=== PATIENT | male | born 1950 | race Caucasian/White ===

== ENCOUNTER 2017-04-13 11:56 | Outpatient (RCR) | payer SELFPAY | END 2017-05-09 23:59 | LOC: NS 11:56 | PROVIDERS: Family Provider Family Medicine; PCP Family Medicine; Visit Provider Family Medicine | DX: Z68.41 Body mass index [BMI] 40.0-44.9, adult (principal); Z71.3 Dietary counseling and surveillance | CPT/HCPCS: 97802 ==

== ENCOUNTER → 2017-05-19 11:03 | Outpatient (CLI) | payer MEDICARE, OTHER, SELFPAY ==
[2017-05-19 12:27] LABS: Absolute Lymphocyte Count 1.76 X10^3/ul (0.83-4.51); Absolute Neutrophil Count 5.2 X10^3/uL (2.0-7.7); Basophil# 0.04 X10^3/uL; Basophil% 0.5 % (0-1); Eosinophil# 0.17 X10^3/uL; Eosinophils% 2.2 % (0-5); Hematocrit 41.7 % (40-54); Hemoglobin 14.3 g/dl (13.0-16.5); Lymphocyte # 1.76 X10^3/ul (4.0); Lymphocyte % 22.5 % (19-41); Mean Corp Hgb Conc 34.3 g/gl (32-36); Mean Corpuscular Hgb 30.6 pg (27.0-32.0); Mean Corpuscular Volume 89.3 fL (80-94); Mean Platelet Vol. 10.6 fl (6.2-12.0); Monocyte# 0.68 X10^3/uL; Monocyte% 8.7 % (0-10); Neutrophil # 5.15 X10^3/uL (2.7-7.7); POSITIVE COUNT NO; POSITIVE DIFFERENTIAL NO; POSITIVE MORPHOLOGY NO; Platelet Count 168 K/mm3 (150-450); RBC Distribution Width CV 12.7 % (11.6-14.6); RBC Distribution Width SD 40.9 fl (35.1-43.9); Red Blood Count 4.67 M/mm3 (4.6-6.2); White Blood Count 7.8 K/mm3 (4.4-11.0)
[2017-05-19 12:59] LABS: ALB/GLOB Ratio 0.9 RATIO (0.9-2.4); AST(SGOT) 32 U/L (15-37); Alanine Aminotransfer ALT/SGPT 39 U/L (16-61); Albumin, Serum 3.6 g/dL (3.2-5.0); Alkaline Phosphatase 77 U/L (45-117); Anion Gap 6 (5-15); BUN 14 mg/dL (7-18); Calcium,Total 8.6 mg/dL (8.5-10.1); Chloride 107 mmol/L (98-107); EST Glomerular Filtration Rate 80 mL/min (>60); Est Glom Filt Rate - Afr Amer 96 mL/min (>60); Globulin 4.2 g/dL (2.2-4.2); Glucose 103 mg/dL (74-106); Potassium 4.2 mmol/L (3.5-5.1); Protein, Total 7.8 g/dL (6.4-8.2); Sodium Level 140 mmol/L (136-145)
== END ==
PROVIDERS: Family Provider Family Medicine; PCP Family Medicine; Visit Provider Internal Medicine Rheumatology
DX: M06.4 Inflammatory polyarthropathy (principal); M17.11 Unilateral primary osteoarthritis, right knee; M48.10 Ankylosing hyperostosis [Forestier], site unspecified; K76.0 Fatty (change of) liver, not elsewhere classified
CPT/HCPCS: 36415; 80053; 85025

== ENCOUNTER → 2017-08-06 15:22 | Outpatient (CLI) | payer MEDICARE, OTHER, SELFPAY ==
[2017-08-06 18:24] LABS: Absolute Lymphocyte Count 2.06 X10^3/ul (0.83-4.51); Absolute Neutrophil Count 7.2 X10^3/uL (2.0-7.7); Basophil# 0.02 X10^3/uL; Basophil% 0.2 % (0-1); Eosinophil# 0.13 X10^3/uL; Eosinophils% 1.2 % (0-5); Hematocrit 40.7 % (40-54); Hemoglobin 13.4 g/dl (13.0-16.5); Lymphocyte # 2.06 X10^3/ul (4.0); Lymphocyte % 19.6 % (19-41); Mean Corp Hgb Conc 32.9 g/gl (32-36); Mean Corpuscular Hgb 29.7 pg (27.0-32.0); Mean Corpuscular Volume 90.2 fL (80-94); Mean Platelet Vol. 10.4 fl (6.2-12.0); Monocyte# 1.13 X10^3/uL; Monocyte% 10.8 % (0-10); Neutrophil # 7.15 X10^3/uL (2.7-7.7); Platelet Count 159 K/mm3 (150-450); RBC Distribution Width SD 42.5 fl (35.1-43.9); Red Blood Count 4.51 M/mm3 (4.6-6.2); White Blood Count 10.5 K/mm3 (4.4-11.0)
[2017-08-06 18:33] LABS: POSITIVE COUNT NO; POSITIVE DIFFERENTIAL NO; POSITIVE MORPHOLOGY NO
[2017-08-06 19:03] LABS: Microalbumin:Creatinine Ratio 47.2 mg/g CRE (<30 mg/g CRE)
[2017-08-06 19:06] LABS: ALB/GLOB Ratio 0.8 RATIO (0.9-2.4); AST(SGOT) 30 U/L (15-37); Alanine Aminotransfer ALT/SGPT 30 U/L (16-61); Albumin, Serum 3.6 g/dL (3.2-5.0); Alkaline Phosphatase 83 U/L (45-117); Anion Gap 8 (5-15); BUN 13 mg/dL (7-18); BUN/Creat Ratio 14.8 RATIO (10-20); CPK Total, Creatine Kinase 379 U/L (39-308); Calcium,Total 8.7 mg/dL (8.5-10.1); Chloride 103 mmol/L (98-107); Cholesterol 114 mg/dL (200); Creatinine, Serum 0.88 mg/dL (0.70-1.30); EST Glomerular Filtration Rate 92 mL/min (>60); Est Glom Filt Rate - Afr Amer 112 mL/min (>60); Globulin 4.5 g/dL (2.2-4.2); Glucose 94 mg/dL (74-106); Potassium 3.7 mmol/L (3.5-5.1); Protein, Total 8.1 g/dL (6.4-8.2); Sodium Level 137 mmol/L (136-145); Thyroid Stim Hormone (TSH) 2.98 uIU/mL (0.358-3.74)
[2017-08-08 16:10] LABS: Creatine Kinase BB 0 % (0); Creatine Kinase MB 1 % (0-3); Creatine Kinase MM 97 % (97-100); Creatine Kinase,Total,Serum 387 U/L (24-204); LDL, Direct 120295 68 mg/dL (0-99); Macro II 0 % (Not Observed)
[2017-08-09 12:39] LABS: ANTINUCLEAR ANTIBODIES DIRECT Negative (Negative); Aldolase 5.7 U/L (3.3-10.3); Macro I 3 % (Not Observed)
== END ==
PROVIDERS: Family Provider Family Medicine; PCP Family Medicine; Visit Provider Family Medicine
DX: R74.8 Abnormal levels of other serum enzymes (principal); M06.4 Inflammatory polyarthropathy; I70.8 Atherosclerosis of other arteries
CPT/HCPCS: 36415; 80053; 82043; 82085; 82465; 82550; 82552; 82570; 83721; 84443; 85025; 86038; 86140

== ENCOUNTER → 2017-09-18 11:00 | Outpatient (CLI) | payer MEDICARE, OTHER, SELFPAY ==
[2017-09-18 12:11] LABS: Absolute Lymphocyte Count 1.75 X10^3/ul (0.83-4.51); Absolute Neutrophil Count 3.5 X10^3/uL (2.0-7.7); Basophil# 0.02 X10^3/uL; Basophil% 0.3 % (0-1); Eosinophils% 1.7 % (0-5); Hematocrit 41.7 % (40-54); Lymphocyte # 1.75 X10^3/ul (4.0); Lymphocyte % 30.5 % (19-41); Mean Corp Hgb Conc 33.6 g/gl (32-36); Mean Corpuscular Hgb 30.9 pg (27.0-32.0); Mean Corpuscular Volume 92.1 fL (80-94); Mean Platelet Vol. 10.2 fl (6.2-12.0); Monocyte# 0.34 X10^3/uL; Monocyte% 5.9 % (0-10); Neutrophil # 3.51 X10^3/uL (2.7-7.7); Neutrophil % 61.4 % (47-70); Platelet Count 156 K/mm3 (150-450); RBC Distribution Width CV 13.6 % (11.6-14.6); RBC Distribution Width SD 44.9 fl (35.1-43.9); Red Blood Count 4.53 M/mm3 (4.6-6.2); White Blood Count 5.7 K/mm3 (4.4-11.0)
[2017-09-18 12:16] LABS: POSITIVE COUNT NO; POSITIVE DIFFERENTIAL NO; POSITIVE MORPHOLOGY NO
[2017-09-18 12:41] LABS: ALB/GLOB Ratio 0.9 RATIO (0.9-2.4); AST(SGOT) 34 U/L (15-37); Alanine Aminotransfer ALT/SGPT 42 U/L (16-61); Albumin, Serum 3.7 g/dL (3.2-5.0); Alkaline Phosphatase 76 U/L (45-117); Anion Gap 9 (5-15); BUN 18 mg/dL (7-18); Calcium,Total 8.7 mg/dL (8.5-10.1); Chloride 103 mmol/L (98-107); EST Glomerular Filtration Rate 80 mL/min (>60); Est Glom Filt Rate - Afr Amer 96 mL/min (>60); Globulin 4.2 g/dL (2.2-4.2); Glucose 139 mg/dL (74-106); Potassium 4.2 mmol/L (3.5-5.1); Protein, Total 7.9 g/dL (6.4-8.2); Sodium Level 141 mmol/L (136-145)
== END ==
PROVIDERS: Family Provider Family Medicine; PCP Family Medicine; Visit Provider Internal Medicine Rheumatology
DX: M06.4 Inflammatory polyarthropathy (principal); M17.11 Unilateral primary osteoarthritis, right knee; M48.10 Ankylosing hyperostosis [Forestier], site unspecified
CPT/HCPCS: 36415; 80053; 85025

== ENCOUNTER → 2017-11-29 15:19 | Outpatient (CLI) | payer MEDICARE, OTHER, SELFPAY ==
[2017-11-29 18:28] LABS: ALB/GLOB Ratio 0.9 RATIO (0.9-2.4); AST(SGOT) 36 U/L (15-37); Alanine Aminotransfer ALT/SGPT 42 U/L (16-61); Albumin, Serum 3.7 g/dL (3.2-5.0); Alkaline Phosphatase 72 U/L (45-117); Anion Gap 13 (5-15); BUN 19 mg/dL (7-18); BUN/Creat Ratio 20.1 RATIO (10-20); CPK Total, Creatine Kinase 350 U/L (39-308); Calcium,Total 8.9 mg/dL (8.5-10.1); Chloride 102 mmol/L (98-107); Creatinine, Serum 0.94 mg/dL (0.70-1.30); EST Glomerular Filtration Rate 85 mL/min (>60); Est Glom Filt Rate - Afr Amer 103 mL/min (>60); Globulin 4.1 g/dL (2.2-4.2); Glucose 104 mg/dL (74-106); Potassium 3.9 mmol/L (3.5-5.1); Protein, Total 7.8 g/dL (6.4-8.2); Sodium Level 140 mmol/L (136-145)
== END ==
PROVIDERS: Family Provider Family Medicine; PCP Family Medicine; Visit Provider Family Medicine
DX: R52 Pain, unspecified (principal)
CPT/HCPCS: 36415; 80053; 82550

== ENCOUNTER → 2017-12-27 11:24 | Outpatient (CLI) | payer MEDICARE, OTHER, SELFPAY ==
[2017-12-27 14:35] LABS: ALB/GLOB Ratio 0.9 RATIO (0.9-2.4); AST(SGOT) 29 U/L (15-37); Alanine Aminotransfer ALT/SGPT 39 U/L (16-61); Albumin, Serum 3.5 g/dL (3.2-5.0); Alkaline Phosphatase 74 U/L (45-117); Anion Gap 7 (5-15); BUN 13 mg/dL (7-18); BUN/Creat Ratio 14.8 RATIO (10-20); Chloride 106 mmol/L (98-107); Cholesterol 96 mg/dL (200); Creatinine, Serum 0.88 mg/dL (0.70-1.30); EST Glomerular Filtration Rate 93 mL/min (>60); Est Glom Filt Rate - Afr Amer 112 mL/min (>60); Globulin 3.9 g/dL (2.2-4.2); Glucose 104 mg/dL (74-106); High Density Lipoprotein 43 mg/dL; Potassium 3.9 mmol/L (3.5-5.1); Protein, Total 7.4 g/dL (6.4-8.2); Sodium Level 143 mmol/L (136-145); Triglycerides 69 mg/dL; Very Low Density Lipoprotein 14 mg/dL (5-40)
[2017-12-27 14:38] LABS: Hematocrit 41.3 % (40-54); Hemoglobin 13.9 g/dl (13.0-16.5); Mean Corp Hgb Conc 33.7 g/gl (32-36); Mean Corpuscular Hgb 31.4 pg (27.0-32.0); Mean Corpuscular Volume 93.2 fL (80-94); Platelet Count 161 K/mm3 (150-450); RBC Distribution Width CV 12.6 % (11.6-14.6); RBC Distribution Width SD 41.9 fl (35.1-43.9); Red Blood Count 4.43 M/mm3 (4.6-6.2); Vitamin D,25 Hydroxy 30.6 ng/mL (29.95-100.01); White Blood Count 6.9 K/mm3 (4.4-11.0)
[2017-12-27 14:39] LABS: Absolute Lymphocyte Count 1.66 X10^3/ul (0.83-4.51); Absolute Neutrophil Count 4.3 X10^3/uL (2.0-7.7); Basophil# 0.04 X10^3/uL; Basophil% 0.6 % (0-1); Eosinophil# 0.23 X10^3/uL; Eosinophils% 3.3 % (0-5); Lymphocyte # 1.66 X10^3/ul (4.0); Lymphocyte % 24.1 % (19-41); Mean Platelet Vol. 10.3 fl (6.2-12.0); Monocyte# 0.64 X10^3/uL; Monocyte% 9.3 % (0-10); Neutrophil % 62.4 % (47-70); POSITIVE COUNT NO; POSITIVE DIFFERENTIAL NO; POSITIVE MORPHOLOGY NO
[2017-12-28 16:09] LABS: Creatine Kinase MB 0 % (0-3); Creatine Kinase MM 100 % (97-100); Creatine Kinase,Total,Serum 221 U/L (24-204); Macro I 0 % (Not Observed); Macro II 0 % (Not Observed)
[2017-12-31 11:02] LABS: Creatine Kinase BB 0 % (0)
== END ==
PROVIDERS: Family Provider Family Medicine; PCP Family Medicine; Visit Provider Family Medicine
DX: I70.8 Atherosclerosis of other arteries (principal); M48.10 Ankylosing hyperostosis [Forestier], site unspecified; M06.4 Inflammatory polyarthropathy; M17.11 Unilateral primary osteoarthritis, right knee
CPT/HCPCS: 36415; 80053; 80061; 82306; 82550; 82552; 85025

== ENCOUNTER → 2018-02-14 11:34 | Outpatient (CLI) | payer MEDICARE, OTHER, SELFPAY ==
[2018-02-14 14:36] LABS: Absolute Lymphocyte Count 1.76 X10^3/ul (0.83-4.51); Absolute Neutrophil Count 3.8 X10^3/uL (2.0-7.7); Basophil# 0.03 X10^3/uL; Basophil% 0.5 % (0-1); Eosinophil# 0.09 X10^3/uL; Eosinophils% 1.4 % (0-5); Hematocrit 42.2 % (40-54); Hemoglobin 13.9 g/dl (13.0-16.5); Lymphocyte # 1.76 X10^3/ul (4.0); Lymphocyte % 28.1 % (19-41); Mean Corp Hgb Conc 32.9 g/gl (32-36); Mean Corpuscular Hgb 31.2 pg (27.0-32.0); Mean Corpuscular Volume 94.8 fL (80-94); Mean Platelet Vol. 10.1 fl (6.2-12.0); Monocyte# 0.55 X10^3/uL; Monocyte% 8.8 % (0-10); Neutrophil # 3.81 X10^3/uL (2.7-7.7); Neutrophil % 60.9 % (47-70); POSITIVE COUNT NO; POSITIVE DIFFERENTIAL NO; POSITIVE MORPHOLOGY NO; Platelet Count 161 K/mm3 (150-450); RBC Distribution Width CV 13.3 % (11.6-14.6); RBC Distribution Width SD 45.5 fl (35.1-43.9); Red Blood Count 4.45 M/mm3 (4.6-6.2); White Blood Count 6.3 K/mm3 (4.4-11.0)
[2018-02-14 14:54] LABS: ALB/GLOB Ratio 0.9 RATIO (0.9-2.4); AST(SGOT) 26 U/L (15-37); Alanine Aminotransfer ALT/SGPT 39 U/L (16-61); Albumin, Serum 3.6 g/dL (3.2-5.0); Alkaline Phosphatase 76 U/L (45-117); Anion Gap 9 (5-15); BUN 16 mg/dL (7-18); BUN/Creat Ratio 17.7 RATIO (10-20); Calcium,Total 8.7 mg/dL (8.5-10.1); Chloride 104 mmol/L (98-107); EST Glomerular Filtration Rate 89 mL/min (>60); Est Glom Filt Rate - Afr Amer 108 mL/min (>60); Glucose 119 mg/dL (74-106); Potassium 3.7 mmol/L (3.5-5.1); Protein, Total 7.6 g/dL (6.4-8.2); Sodium Level 142 mmol/L (136-145)
== END ==
PROVIDERS: Family Provider Family Medicine; PCP Family Medicine; Visit Provider Internal Medicine Rheumatology
DX: M06.4 Inflammatory polyarthropathy (principal); M17.11 Unilateral primary osteoarthritis, right knee; M48.10 Ankylosing hyperostosis [Forestier], site unspecified; K76.0 Fatty (change of) liver, not elsewhere classified; E78.5 Hyperlipidemia, unspecified; I10 Essential (primary) hypertension; K58.9 Irritable bowel syndrome, unspecified; F41.9 Anxiety disorder, unspecified; I73.9 Peripheral vascular disease, unspecified
CPT/HCPCS: 36415; 80053; 85025

== ENCOUNTER → 2018-05-14 11:15 | Outpatient (CLI) | payer MEDICARE, SELFPAY ==
[2017-07-27 11:20] VITALS: BMI 41.2
[2018-05-14 13:58] LABS: Absolute Lymphocyte Count 1.75 X10^3/ul (0.83-4.51); Absolute Neutrophil Count 4.7 X10^3/uL (2.0-7.7); Basophil# 0.03 X10^3/uL; Basophil% 0.4 % (0-1); Eosinophil# 0.09 X10^3/uL; Eosinophils% 1.3 % (0-5); Hematocrit 44.2 % (40-54); Hemoglobin 14.5 g/dl (13.0-16.5); Lymphocyte # 1.75 X10^3/ul (4.0); Lymphocyte % 24.4 % (19-41); Mean Corp Hgb Conc 32.8 g/gl (32-36); Mean Corpuscular Hgb 30.6 pg (27.0-32.0); Mean Corpuscular Volume 93.2 fL (80-94); Mean Platelet Vol. 10.8 fl (6.2-12.0); Monocyte# 0.62 X10^3/uL; Monocyte% 8.6 % (0-10); Neutrophil # 4.67 X10^3/uL (2.7-7.7); Platelet Count 165 K/mm3 (150-450); RBC Distribution Width SD 44.3 fl (35.1-43.9); Red Blood Count 4.74 M/mm3 (4.6-6.2); White Blood Count 7.2 K/mm3 (4.4-11.0)
[2018-05-14 14:01] LABS: POSITIVE COUNT NO; POSITIVE DIFFERENTIAL NO; POSITIVE MORPHOLOGY NO
[2018-05-14 15:08] LABS: ALB/GLOB Ratio 1.1 RATIO (0.9-2.4); AST(SGOT) 29 U/L (15-37); Alanine Aminotransfer ALT/SGPT 37 U/L (16-61); Albumin, Serum 3.9 g/dL (3.2-5.0); Alkaline Phosphatase 81 U/L (45-117); Anion Gap 10 (5-15); BUN 12 mg/dL (7-18); BUN/Creat Ratio 13.5 RATIO (10-20); Calcium,Total 8.8 mg/dL (8.5-10.1); Chloride 105 mmol/L (98-107); Creatinine, Serum 0.89 mg/dL (0.70-1.30); EST Glomerular Filtration Rate 91 mL/min (>60); Est Glom Filt Rate - Afr Amer 110 mL/min (>60); Globulin 3.4 g/dL (2.2-4.2); Glucose 108 mg/dL (74-106); Potassium 3.8 mmol/L (3.5-5.1); Protein, Total 7.3 g/dL (6.4-8.2); Sodium Level 144 mmol/L (136-145)
== END ==
PROVIDERS: Family Provider Family Medicine; PCP Family Medicine; Visit Provider Internal Medicine Rheumatology
DX: M06.4 Inflammatory polyarthropathy (principal); M17.11 Unilateral primary osteoarthritis, right knee; M48.10 Ankylosing hyperostosis [Forestier], site unspecified; K76.0 Fatty (change of) liver, not elsewhere classified; E78.5 Hyperlipidemia, unspecified; I10 Essential (primary) hypertension; K58.9 Irritable bowel syndrome, unspecified; F41.9 Anxiety disorder, unspecified; I73.9 Peripheral vascular disease, unspecified
CPT/HCPCS: 36415; 80053; 85025

== ENCOUNTER → 2018-06-14 11:47 | Outpatient (CLI) | payer MEDICARE, OTHER, SELFPAY ==
[2018-06-14 11:10] VITALS: BMI 41.2
[2018-06-17 12:13] LABS: H. PYLORI STOOL AG Negative (Negative)
== END ==
PROVIDERS: Family Provider Family Medicine; PCP Family Medicine
DX: K21.9 Gastro-esophageal reflux disease without esophagitis (principal)

== ENCOUNTER → 2018-07-01 13:02 | Outpatient (CLI) | payer MEDICARE, OTHER, SELFPAY ==
[2018-06-14 11:10] VITALS: BMI 41.2
--- NOTE | 2018-07-01 13:04 | ECHOD_ITS ---
Reason For Study: HTN Procedure This was a 2D Doppler, Color Flow transthoracic echocardiogram. Exam performed in department. Left Ventricle Normal LV size. Mild concentric left ventricular hypertrophy. Left ventricular systolic function is normal. The estimated ejection fraction is 60 %. Stage 1 diastolic dysfunction. No regional wall motion abnormalities noted. Right Ventricle Normal RV size. Normal systolic function. Atria Normal left atrium. Normal right atrium. Mitral Valve Normal mitral valve. Tricuspid Valve Normal tricuspid valve. Aortic Valve Normal aortic valve. Pulmonic Valve Normal pulmonic valve. Great Vessels Normal aortic root. The pulmonary artery is normal size. Normal inferior vena cava. Pericardium/Pleural No pericardial effusion. MMode/2D Measurements & Calculations LVIDd: 5.2 cm IVSd: 1.4 cm LVOT diam: 2.3 cm LVIDs: 3.5 cm LVPWd: 1.2 cm LVOT area: 4.2 cm2 RVDd: 3.9 cm FS: 32.9 % Ao root diam: 3.3 cm LAV(MOD-bp): 57.5 ml LVAd ap4: 36.9 cm2 LAV(MOD-bp) Indexed: 22.3 ml/m2 EDV(MOD-sp4): 121.1 ml LAV(MOD-sp2): 51.1 ml EDV(sp4-el): 125.5 ml LAV(MOD-sp4): 60.6 ml LVAs ap4: 17.9 cm2 ESV(MOD-sp4): 38.9 ml ESV(sp4-el): 38.1 ml EF(MOD-sp4): 67.9 % EF(sp4-el): 69.6 % SV(MOD-sp4): 82.2 ml SV(sp4-el): 87.4 ml LA A4 area: 20.9 cm2 LA dimension(2D): 4.5 cm RA A4 area: 19.2 cm2 Doppler Measurements & Calculations MV E max charles: 62.0 cm/sec Lat Peak E' Charles: 9.2 cm/sec Med Peak E' Charles: 5.6 cm/sec MV A max charles: 98.6 cm/sec E/E' lat: 6.7 E/E' med: 11.1 MV E/A: 0.63 Ao V2 max: 195.7 cm/sec LV V1 max: 123.4 cm/sec SV(LVOT): 102.8 ml Ao max P.4 mmHg LV V1 max P.2 mmHg Ao V2 mean: 127.8 cm/sec LV V1 mean P.3 mmHg Ao mean P.4 mmHg LV V1 mean: 85.6 cm/sec Ao V2 VTI: 39.5 cm LV V1 VTI: 24.6 cm MANISH(I,D): 2.6 cm2 MANISH(V,D): 2.6 cm2 PA V2 max: 126.8 cm/sec Interpretation Summary Normal LV size. Mild concentric left ventricular hypertrophy. Left ventricular systolic function is normal. The estimated ejection fraction is 60 %. Stage 1 diastolic dysfunction. Ordering Physician: Andrea Ly Referring Physician: Kevyn Sal Performed By: Soni Lawson RDCS, RVT
== END ==
PROVIDERS: Family Provider Family Medicine; PCP Family Medicine; Referring Provider Internal Medicine Cardiovascular Disease; Visit Provider Internal Medicine Cardiovascular Disease
DX: I49.3 Ventricular premature depolarization (principal)
CPT/HCPCS: 93306

== ENCOUNTER 2018-08-02 13:00 | Outpatient (RCR) | payer MEDICARE, OTHER, SELFPAY ==
[2018-06-14 11:10] VITALS: BMI 41.2
== END 2018-08-02 23:59 | disposition home or self-care (01) ==
LOC: NS 13:00
PROVIDERS: Family Provider Family Medicine; PCP Family Medicine; Visit Provider Orthopaedic Surgery
DX: M12.561 Traumatic arthropathy, right knee (principal); I10 Essential (primary) hypertension; Z71.3 Dietary counseling and surveillance
CPT/HCPCS: 97802; 97803

== ENCOUNTER 2018-08-19 05:33 | Observation (INO) | payer MEDICARE, OTHER, SELFPAY ==
[2018-06-14 11:10] VITALS: BMI 41.2
[2018-08-09 13:30] VITALS: BP 148/61; PULSE 62; RESP 18; TEMP 36.6; O2SAT 96; BMI 40.0
[2018-08-09 14:33] LABS: Hemoglobin 14.2 g/dl (13.0-16.5); Mean Corp Hgb Conc 34.6 g/gl (32-36); Mean Corpuscular Hgb 31.6 pg (27.0-32.0); Mean Corpuscular Volume 91.3 fL (80-94); Mean Platelet Vol. 9.7 fl (6.2-12.0); Platelet Count 156 K/mm3 (150-450); RBC Distribution Width CV 13.6 % (11.6-14.6); RBC Distribution Width SD 44.6 fl (35.1-43.9); Red Blood Count 4.49 M/mm3 (4.6-6.2); White Blood Count 7.1 K/mm3 (4.4-11.0)
[2018-08-09 14:34] LABS: Scan Indicated on CBC? Y/N NO
--- NOTE | 2018-08-09 14:46 | SDCEKG_ITS ---
Test Reason : Blood Pressure : / mmHG Vent. Rate : 050 BPM Atrial Rate : 050 BPM P-R Int : 158 ms QRS Dur : 090 ms QT Int : 458 ms P-R-T Axes : 020 -20 -02 degrees QTc Int : 417 ms Sinus bradycardia with marked sinus arrhythmia Inferior infarct , age undetermined Abnormal ECG Confirmed by ROLAND ANDREWS, LORIE ([id number]), medical transcription editor ADRIANNA PIERRE ([id number]) on 08/13/2018 1:35:15 PM Referred By: Paul Jj Confirmed By:LORIE WATKINS MD
[2018-08-09 15:00] LABS: Anion Gap 6 (5-15); BUN 13 mg/dL (7-18); BUN/Creat Ratio 14.5 RATIO (10-20); Calcium,Total 8.9 mg/dL (8.5-10.1); Chloride 106 mmol/L (98-107); EST Glomerular Filtration Rate 90 mL/min (>60); Est Glom Filt Rate - Afr Amer 109 mL/min (>60); Estimated Creatinine Clearance 93.87 ml/min; Glucose 87 mg/dL (74-106); Potassium 4.4 mmol/L (3.5-5.1); Sodium Level 141 mmol/L (136-145)
[2018-08-19] VITALS (15 sets, daily range): BP systolic 102–145; BP diastolic 49–72; PULSE 54–89; RESP 14–18; TEMP 36.2–37.3; O2SAT 91–98; BMI 40.0
[2018-08-19] MEDS: Acetaminophen 500 MG Tablet 1000 MG PO ×3 (06:32→21:20)
[2018-08-19] MEDS: oxyCODONE HCl Cr 10 MG Tablet PO (06:32)
[2018-08-19] MEDS: Celecoxib 200 MG Capsule 400 MG PO (06:33)
--- NOTE | 2018-08-19 07:15 | KNEE_PTH ---
PATIENT: ERICA CARLIN LOC: [facility]3 U#:[id number] AGE/SX: 67/M [place] [facility] [place] RE08/19/[address]: Dr. Paul Jj DO : 1950 BED: 1 DIS: 08/20/2018 SPEC #: [id number] RECD: 08/19/18 11:28 STATUS: AYAD TERESITA #: [id number] DEE: 08/19/18 07:[address]: Paul Jj DEPT: SURGICAL PATHOLOGY RECD BY: Ping Orr ENTERED: 08/19/18 11:50 SP TYPE: TOTAL KNEE OTHR DR: Dr. Kevyn Sal MD Tissues: Knee, NOS Procedures: Decalcification bone/plaque Surgery Specimen Level IV HEADER OPERATION: Total knee replacement PRE-OP DIAGNOSIS: Osteoarthritis, left knee TISSUE SUBMITTED: Left knee bone and tissue MICROSCOPIC DIAGNOSIS Bone and tissue of left knee, total knee resection: Severe degenerative joint disease. AM:tab 08/22/18 MICROSCOPIC DESCRIPTION Slides are reviewed. GROSS DESCRIPTION Received is one container designated bone and soft tissue left knee. The specimen consists of multiple fragments of tran-yellow bone measuring in aggregate 12 x 10 x 3.5 cm. No soft tissue is identified. A number of bony fragments contain articular surfaces consistent with tibial plateau and femoral condyle and displaying prominent osteophyte formation, eburnation, and bone erosion. Shoe Singer sections are submitted in one cassette after decalcification. / SJ:tab 08/19/18 TC:5 CPT: 13044, 06464
--- NOTE | 2018-08-19 08:52 | PCM.OPRPT ---
Report of Operation Date of Procedure: 08/19/18 Pre-Operative Diagnosis: OA left knee Post-Operative Diagnosis: same Surgery/Procedure Performed:: Left TKR Description of Surgical Findings:: Primary Surgeon/Physician: Paul Jj bin operator: Alejo Bird PA-C bin operator: Pre-Operative Diagnosis: Osteoarthritis left knee Post-Operative Diagnosis: same Surgery/Procedure Performed: Left TKR Estimated Blood Loss: 25cc Specimen's Removed: bone Type of Anesthesia: spinal ASA Class: 3 Implants: [Wayne Triathlon size 7 press fit CR femur, Press fit 7 tibia, 9 mm CS poly, 38 mm press fit patella ] Indications: Patient has severe end-stage osteoarthritis diagnosed via x-rays in the knee. They have failed all forms of conservative measures including activity modification, injections, anti-inflammatories, use of assistive device. The patient has pain that affects on a daily basis and prevents him from doing things that they enjoyed. They have elected to undergo the above procedure. The risks of the procedure were discussed at length and their questions were answered. Procedure Description: The patient was greeted in the preoperative area. The [left ] knee was then marked with a surgical marker. Patient was then taken to or Suite 2. They were administered a dose of antibiotics as well as tranexamic acid. Once adequate anesthesia was obtained and airway was secured to placed in supine position on the operating room table. A well-padded tourniquet was placed on the affected extremity. Leg was then prepped and draped in the usual sterile fashion from the knee down. Ioban was used on the skin. Surgical timeout was then performed and confirmed with all present. Six-inch Esmarch was used to examine the limb and tourniquet was then inflated to 250 mmHg. A longitudinal incision was then planned and carried out in the anterior aspect of the knee. The dissection was then carried the length of the incision the extensor mechanism was identified. Standard medial parapatellar arthrotomy was then performed revealing severe eburnation of bone and periarticular osteophytes. There is complete loss of cartilage especially in the medial compartment with varus alignment. Anterior fat pad was removed for visualization purposes and the anterior medial aspect of the tibia was skeletonized for exposure to the knee. The knee was then flexed the patella was inverted. Opening reamer was then used in the femur approximately 1 cm anterior to the attachment of the PCL. The intramedullary valgus wand was then placed in the femur set at 5? of valgus. The distal femoral cutting jig was then applied to the femur with anticipated resection of approximately 8 mm. This was then made with a oscillating saw. The sizing guide was then placed referencing off the posterior condyles and also reference off the epicondylar axis. This was measured and the appropriate size 4-in-1 cutting jig was then applied to the distal femur. Anterior posterior cuts were made followed by the anterior and posterior chamfer cuts. These bony pieces and fragments were removed and placed on the back table. Posterior retractor was then utilized and the tibia was subluxed anteriorly. Intramedullary tibial alignment jig was then applied to the tibia referencing off the medial one third of the tibial tubercle the anterior tibial spine the middle aspect of the tibiotalar joint. Also reference off patient's little traverse slope. The tibial cutting jig was then pinned with anticipated resection of 2 mm off of the deficient medial tibial condyle. This cut was made with the oscillating saw. Once this was complete a laminar warehouse guard was utilized in both medial lateral meniscus were removed and a posterior capsular osteophytes were also removed. Posterior capsule release was performed in the posterior capsule as well as the geniculate arteries are treated with the aqua Marlena. The tibia was incised and the appropriate sized tibial tray was then pinned. The femoral trial was then placed and the knee was trialed. Full flexion-extension were easily achieved. The knee seemed to balance quite nicely. Any remaining osteophytes were removed at this time. Once this was complete the patella was everted and the Sae patella reaming device was then utilized the patella was then placed in the appropriate jig and reamer was then used to remove approximately 9 mm of the undersurface of the patella. A soft tissue remaining was in the way was removed and patella trial was then placed listed maintain excellent tracking using the no thumbs technique. The tibial tray at this point was punched to accommodate the fins of the final implant. The trial components were removed and the knee was copiously irrigated. Did use a cocktail of injection for postoperative pain control. The final components were then impacted in the standard fashion and. Tourniquet was deflated and hemostasis was perfect with Bovie cautery as well as the aqua Manus. The knee is once again trialed with different size polyethylenes to ensure the full range of motion was achieved as well as excellent balancing ligamentously was achieved. At this point the knee was copiously irrigated. Final implant was then inserted locking mechanism was engaged and confirmed to be locked. The arthrotomy was then closed with #1 Vicryl aggravate type fashion interrupted. Subcutaneous tissue was closed with 0 Vicryl and surgical linda were placed in the skin. A occlusive silver impregnated dressing was then applied followed by well-padded sterile dressing secured with an Alexi wrap. The patient was taken to the PACU in stable condition. No complications known at this time. Postoperatively we will maintain standard total knee postoperative protocol. The use of the physician assistant manager pt was integral during this procedure. They assisted with positioning placement of the tourniquet retracting closure and placement of the dressing. The procedure would have been much more difficult without their expertise and assistance bin operator: Alejo Bird Type of Anesthesia:: Spinal Anesthesiologist: Paul Bunch Specimen's removed: bone Drains: none Estimated Blood Loss (mL): 25 cc - Admit VTE Documentation VTE Present on Admission: No VTE Mechan Device Prophylaxis: SCD's, Thigh High MIREILLE Hose VTE Pharm Prophylaxis ordered?: Yes
--- NOTE | 2018-08-19 09:00 | OP.PCM_ITS ---
Report of Operation Date of Procedure: 08/19/18 Pre-Operative Diagnosis: OA left knee Post-Operative Diagnosis: same Surgery/Procedure Performed:: Left TKR Description of Surgical Findings:: Primary Surgeon/Physician: Paul Jj publications distribution clerk: Alejo Bird PA-C publications distribution clerk: Pre-Operative Diagnosis: Osteoarthritis left knee Post-Operative Diagnosis: same Surgery/Procedure Performed: Left TKR Estimated Blood Loss: 25cc Specimen's Removed: bone Type of Anesthesia: spinal ASA Class: 3 Implants: [Omar Triathlon size 7 press fit CR femur, Press fit 7 tibia, 9 mm CS poly, 38 mm press fit patella ] Indications: Patient has severe end-stage osteoarthritis diagnosed via x-rays in the knee. They have failed all forms of conservative measures including activity modification, injections, anti-inflammatories, use of assistive device. The patient has pain that affects on a daily basis and prevents him from doing things that they enjoyed. They have elected to undergo the above procedure. The risks of the procedure were discussed at length and their questions were answered. Procedure Description: The patient was greeted in the preoperative area. The [left ] knee was then marked with a surgical marker. Patient was then taken to or Suite 2. They were administered a dose of antibiotics as well as tranexamic acid. Once adequate anesthesia was obtained and airway was secured to placed in supine position on the operating room table. A well-padded tourniquet was placed on the affected extremity. Leg was then prepped and draped in the usual sterile fashion from the knee down. Ioban was used on the skin. Surgical timeout was then performed and confirmed with all present. Six-inch Esmarch was used to examine the limb and tourniquet was then inflated to 250 mmHg. A longitudinal incision was then planned and carried out in the anterior aspect of the knee. The dissection was then carried the length of the incision the extensor mechanism was identified. Standard medial parapatellar arthrotomy was then performed revealing severe eburnation of bone and periarticular osteophytes. There is complete loss of cartilage especially in the medial compartment with varus alignment. Anterior fat pad was removed for visualization purposes and the anterior medial aspect of the tibia was s keletonized for exposure to the knee. The knee was then flexed the patella was inverted. Opening reamer was then used in the femur approximately 1 cm anterior to the attachment of the PCL. The intramedullary valgus wand was then placed in the femur set at 5? of valgus. The distal femoral cutting jig was then applied to the femur with anticipated resection of approximately 8 mm. This was then made with a oscillating saw. The sizing guide was then placed referencing off the posterior condyles and also reference off the epicondylar axis. This was measured and the appropriate size 4-in-1 cutting jig was then applied to the distal femur. Anterior posterior cuts were made followed by the anterior and posterior chamfer cuts. These bony pieces and fragments were removed and placed on the back table. Posterior retractor was then utilized and the tibia was subluxed anteriorly. Intramedullary tibial alignment jig was then applied to the tibia referencing off the medial one third of the tibial tubercle the anterior tibial spine the middle aspect of the tibiotalar joint. Also reference off patient's solomon slope. The tibial cutting jig was then pinned with anticipated resection of 2 mm off of the deficient medial tibial condyle. This cut was made with the oscillating saw. Once this was complete a laminar balcony worker was utilized in both medial lateral meniscus were removed and a posterior capsular osteophytes were also removed. Posterior capsule release was performed in the posterior capsule as well as the geniculate arteries are treated with the aqua Marlena. The tibia was incised and the appropriate sized tibial tray was then pinned. The femoral trial was then placed and the knee was trialed. Full flexion-extension were easily achieved. The knee seemed to balance quite nicely. Any remaining osteophytes were removed at this time. Once this was complete the patella was everted and the Sae patella reaming device was then utilized the patella was then placed in the appropriate jig and reamer was then used to remove approximately 9 mm of the undersurface of the patella. A soft tissue remaining was in the way was removed and patella trial was then placed listed maintain excellent tracking using the no thumbs technique. The tibial tray at this point was punched to accommodate the fins of the final implant. The trial components were removed and the knee was copiously irrigated. Did use a cocktail of injection for postoperative pain control. The final components were then impacted in the standard fashion and. Tourniquet was deflated and hemostasis was perfect with Bovie cautery as well as the aqua Manus. The knee is once again trialed with different size polyethylenes to ensure the full range of motion was achieved as well as excellent balancing ligamentously was achieved. At this point the knee was copiously irrigated. Final implant was then inserted locking mechanism was engaged and confirmed to be locked. The arthrotomy was then closed with #1 Vicryl aggravate type fashion interrupted. Subcutaneous tissue was closed with 0 Vicryl and surgical linda were placed in the skin. A occlusive silver impregnated dressing was then applied followed by well-padded sterile dressing secured with an Alexi wrap. The patient was taken to the PACU in stable condition. No complications known at this time. Postoperatively we will maintain standard total knee postoperative protocol. The use of the physician medical staff assistant was integral during this procedure. They assisted with positioning placement of the tourniquet retracting closure and p lacement of the dressing. The procedure would have been much more difficult without their expertise and assistance publications distribution clerk: Alejo Bird Type of Anesthesia:: Spinal Anesthesiologist: Paul Bunch Specimen's removed: bone Drains: none Estimated Blood Loss (mL): 25 cc - Admit VTE Documentation VTE Present on Admission: No VTE Mechan Device Prophylaxis: SCD's, Thigh High MIREILLE Hose VTE Pharm Prophylaxis ordered?: Yes
[2018-08-19] MEDS: Lactated Ringers 1,000 ML 125 ML IV ×3 (10:01→21:24)
[2018-08-19 10:19] LABS: Hemoglobin 12.7 g/dl (13.0-16.5); Mean Corp Hgb Conc 34.3 g/gl (32-36); Mean Corpuscular Hgb 31.4 pg (27.0-32.0); Mean Corpuscular Volume 91.6 fL (80-94); Mean Platelet Vol. 9.5 fl (6.2-12.0); Platelet Count 138 K/mm3 (150-450); RBC Distribution Width CV 13.7 % (11.6-14.6); RBC Distribution Width SD 45.2 fl (35.1-43.9); Red Blood Count 4.04 M/mm3 (4.6-6.2); Scan Indicated on CBC? Y/N NO; White Blood Count 8.4 K/mm3 (4.4-11.0)
[2018-08-19 10:32] LABS: Anion Gap 3 (5-15); BUN 12 mg/dL (7-18); BUN/Creat Ratio 13.1 RATIO (10-20); Calcium,Total 8.3 mg/dL (8.5-10.1); Chloride 108 mmol/L (98-107); Creatinine, Serum 0.92 mg/dL (0.70-1.30); EST Glomerular Filtration Rate 88 mL/min (>60); Est Glom Filt Rate - Afr Amer 106 mL/min (>60); Estimated Creatinine Clearance 91.83 ml/min; Glucose 117 mg/dL (74-106); Potassium 4.4 mmol/L (3.5-5.1); Sodium Level 139 mmol/L (136-145)
[2018-08-19] MEDS: oxyCODONE 5 MG Tablet PO ×3 (12:17→18:37)
[2018-08-19] MEDS: Mag Hydrox/Al Hydrox/Simeth 30 ML UDC PO (15:29)
[2018-08-19] MEDS: Ketorolac 15 MG/ML Vial IV (20:00)
[2018-08-19] MEDS: 0.9% NaCl Peripheral Flush Adult/Peds IV (20:01)
[2018-08-19] MEDS: Aspirin 325 MG Tablet PO (21:20)
[2018-08-19] MEDS: Senna/Docusate Sodium 1 Tablet 2 TABLET PO (21:20)
[2018-08-19] MEDS: traMADol 50 MG Tablet PO (21:24)
[2018-08-19] MEDS: traZODone 50 MG Tablet PO (21:24)
--- NOTE | 2018-08-19 21:30 | NURSING ---
pt called for assist when this rn into room was sitting on his bed iv, polar care & scd tubing tangled. Pt transferred himself with walker. Reminded pt to call for assist due to high fall risk with new knee. Equipment untangled and pt to bed. Bed exit on for safety.
[2018-08-20 00:19] VITALS: BP 145/59; PULSE 78; RESP 14; TEMP 36.9; O2SAT 93
[2018-08-20] MEDS: oxyCODONE 5 MG Tablet PO ×2 (00:24→09:41)
[2018-08-20] MEDS: Ketorolac 15 MG/ML Vial IV (04:16)
[2018-08-20] MEDS: 0.9% NaCl Peripheral Flush Adult/Peds IV ×2 (04:16→06:36)
[2018-08-20 05:51] VITALS: BP 140/56; PULSE 65; RESP 16; TEMP 36.8; O2SAT 97
[2018-08-20] MEDS: Acetaminophen 500 MG Tablet 1000 MG PO (05:58)
[2018-08-20 06:56] LABS: Hematocrit 38.4 % (40-54); Mean Corp Hgb Conc 33.9 g/gl (32-36); Mean Corpuscular Hgb 31.4 pg (27.0-32.0); Mean Corpuscular Volume 92.8 fL (80-94); Mean Platelet Vol. 9.5 fl (6.2-12.0); Platelet Count 138 K/mm3 (150-450); RBC Distribution Width CV 13.7 % (11.6-14.6); RBC Distribution Width SD 45.1 fl (35.1-43.9); Red Blood Count 4.14 M/mm3 (4.6-6.2); White Blood Count 9.9 K/mm3 (4.4-11.0)
[2018-08-20 06:57] LABS: Scan Indicated on CBC? Y/N NO
[2018-08-20 07:07] LABS: Anion Gap 4 (5-15); BUN 10 mg/dL (7-18); BUN/Creat Ratio 11.1 RATIO (10-20); Calcium,Total 8.5 mg/dL (8.5-10.1); Chloride 105 mmol/L (98-107); EST Glomerular Filtration Rate 90 mL/min (>60); Est Glom Filt Rate - Afr Amer 108 mL/min (>60); Estimated Creatinine Clearance 93.87 ml/min; Glucose 113 mg/dL (74-106); Potassium 3.7 mmol/L (3.5-5.1); Sodium Level 140 mmol/L (136-145)
--- NOTE | 2018-08-20 07:54 | PCM.PN.ORT ---
Subjective: Patient sitting at bedside has just completed eating his breakfast. Patient states his knee has been painful but manageable. Denies chest pain, shortness breath, calf pain, nausea vomiting. Patient states she is ready for discharge home, and will continue his physical therapy at [facility] Objective: Dressing is clean dry intact. Nursing has changed his intraoperative dressing as he did have some oozing. The new dressing appears to be clean with no active bleeding. The knee is swollen however is nonerythematous. Patient has no calf tenderness negative signs and symptoms of DVT. Vital signs and labs within normal limits. Patient is afebrile neurovascular is otherwise intact. Patient has good cap refill and strong posterior tibial pulse on the operative left leg - Physical Exam General: Alert, Oriented x3, Cooperative HEENT: PERRLA Oral: Moist Mucosa Neurological: Cranial nerves II-XII grossly intact Psych/Mental Status: Normal Affect, Alert and oriented to time, place, person, mood and affect Vital Signs Temp Pulse Resp BP Pulse Ox 98.3 F 65 16 140/56 H 97 08/20/18 05:51 08/20/18 05:51 08/20/18 05:51 08/20/18 05:51 08/20/18 05:51 Oxygen Flow Rate (L/min) 2 Oxygen Delivery Method Room Air Weight: 141.5 kg Body Mass Index (BMI) 40.0 Intake and Output for Last 24 Hours 08/18/18 08/19/18 08/20/18 23:59 23:59 23:59 Intake Total 2580 / 2580 1805 / 1805 Output Total 1999 Balance 2579 / 2579 -195 / -195 Laboratory Tests Past 24 Hrs 08/19/18 08/19/18 08/20/18 10:14 10:14 06:40 WBC 8.4 9.9 RBC 4.04 L 4.14 L Hgb 12.7 L 13.0 Hct 37.0 L 38.4 L MCV 91.6 92.8 MCH 31.4 31.4 MCHC 34.3 33.9 RDW 13.7 13.7 RDW Differential 45.2 H 45.1 H Plt Count 138 L 138 L MPV 9.5 9.5 Sodium 139 Potassium 4.4 Chloride 108 H Carbon Dioxide 28.0 Anion Gap 3 L BUN 12 Creatinine 0.92 Estim Creat Clear Calc 91.83 Est GFR (MDRD) Af Amer 106 Est GFR (MDRD) Non-Af 88 BUN/Creatinine Ratio 13.1 Glucose 117 H Calcium 8.3 L 08/20/18 06:40 WBC RBC Hgb Hct MCV MCH MCHC RDW RDW Differential Plt Count MPV Sodium 140 Potassium 3.7 Chloride 105 Carbon Dioxide 31.0 Anion Gap 4 L BUN 10 Creatinine 0.90 Estim Creat Clear Calc 93.87 Est GFR (MDRD) Af Amer 108 Est GFR (MDRD) Non-Af 90 BUN/Creatinine Ratio 11.1 Glucose 113 H Calcium 8.5 Medical Necessity - Tobacco Use Smoking Status: Former smoker Assessment/Plan Status post left total knee arthroplasty Plan 1. Continue all pain medications as prescribed 2. Continue physical therapy today, weight-bear as tolerated with walker. 3. Aspirin 325 mg 1 p.o. every 12 hours x30 days for postop DVT prophylaxis 4. Encourage incentive spirometry 5. Follow-up as scheduled with Dr. Jj, see pink sheet for times and dates 6. Discharge home today after p.m. therapy Donny. Patient will continue with his physical therapy outpatient at [facility]
--- NOTE | 2018-08-20 08:02 | DCINST_ITS ---
Discharge Diet: No Restrictions Discharge Activity: May Not Drive, May Shower, Use Walker May shower in (days): 2 Ice area for (Minutes): 20 - each hour while awake. Weight Bearing Status: Weight bearing as tolerated Elevate: Operative Extremity Additional Activity Instructions:: Wear elastic stockings for 2 weeks after your surgery. Call your doctor if your incision/area has: Continuous Slow Oozing, Sudden Increased Bleeding, Increased Pain/ Swelling, Increased Redness, Foul Smelling Discharge Call your doctor if you observe: Fever of 101 or Higher, Coldness, Increased Pain - in extremity, Numbness or Tingling, Change in Color, Calf discomfort, Uncontrolled pain Change Dressing in (Days):: 0 - and daily as needed. Remove Dressing in (days):: 8 Cleanse incision/area with: Soap & Water Allergies/Adverse Reactions: Allergies animal dander Allergy (Severe, Verified 07/27/17 11:09) Cats... eyes itch and water cephalexin Allergy (Verified 07/27/17 11:09) Unknown pravastatin [From Pravachol] Adverse Reaction (Severe, Verified 07/27/17 11:09) mylagia rosuvastatin [From Crestor] Adverse Reaction (Severe, Verified 07/27/17 11:09) myalgias hydrochlorothiazide Adverse Reaction (Unknown, Verified 07/27/17 11:09) Unknown metoprolol [From Toprol XL] Adverse Reaction (Unknown, Verified 07/27/17 11:09) Unknown tadalafil [From Cialis] Adverse Reaction (Unknown, Verified 07/27/17 11:09) Unknown Medications to take at Discharge amlodipine 10 mg tablet 10 mg PO QDAY 07/26/17 celecoxib 200 mg capsule 200 mg PO QDAY 07/26/17 duloxetine 60 mg capsule,delayed release 60 mg PO QDAY 07/26/17 hydroxychloroquine 200 mg tablet 200 mg PO QHS tab 07/26/17 lisinopril 20 mg tablet 20 mg PO QDAY 07/26/17 trazodone 50 mg tablet 50 mg PO QHS PRN 07/26/17 coenzyme Q10 300 mg capsule 300 mg PO QDAY 07/27/17 folic acid 1 mg tablet 1 mg PO DAILY 06/14/18 pitavastatin calcium 2 mg tablet 2 mg PO DAILY 06/14/18 Baclofen 20 mg PO DAILY 08/09/18 Promethazine HCl 25 mg PO Q6H PRN PRN 08/09/18 Ranitidine [Zantac] 150 mg PO DAILY 08/09/18 Vitamin B Complex [B Complex] 1 each PO DAILY 08/09/18 Acetaminophen [Tylenol] 1,000 mg PO Q8 #90 tab 08/20/18 Aspirin 325 mg PO BID #60 tab 08/20/18 Oxycodone [Oxyir] 5 - 10 mg PO Q4H PRN PRN 7 Days #85 tab 08/20/18 The following prescriptions were given: Oxycodone [Oxyir] 5 - 10 mg PO Q4H PRN PRN 7 Days #85 tab PRN Reason: Mod-Severe Pain (4-01/16) Acetaminophen [Tylenol] 1,000 mg PO Q8 #90 tab Aspirin 325 mg PO BID #60 tab Primary Care Physician: Kevyn Sal MD [Primary Care Provider] - Test Results: Test results from this visit will be discussed in further detail at your follow- up appointment, if applicable. Please Follow Up With: Paul Jj, DO When: see pink sheet
--- NOTE | 2018-08-20 08:50 | CASEMGMT ---
[facility] Face to Face with patient for initial transition planning/care coordination assessment. RN CM introduced self and role at [facility]. Patient sitting in chair, alert and oriented. Patient willing to participate in assessment and is able to answer all questions appropriately. Care providers, pharmacy, and demographics verified. Patient wishes to discharge home and is setup with [facility] for outpatient therapy. Patient has walker, raised toilet seat, and shower chair at home. Patient's will be providing transportation. Patient lives in ranch style home with no steps to enter. Patient states he has no further needs or concerns at this time. CM to follow for discharge planning needs that may arise. Disposition Plan: Patient to discharge home with outpatient therapy, family support, and follow-up plans in place. Shelbie TRUJILLO, RN, CM
[2018-08-20 09:11] VITALS: BP 144/67; PULSE 65; RESP 18; TEMP 36.9; O2SAT 94
[2018-08-20] MEDS: Senna/Docusate Sodium 1 Tablet 2 TABLET PO (09:38)
[2018-08-20] MEDS: Lisinopril 20 MG Tablet PO (09:38)
[2018-08-20] MEDS: amLODIPine 10 MG Tablet PO (09:39)
[2018-08-20] MEDS: Aspirin 325 MG Tablet PO (09:39)
[2018-08-20] MEDS: Famotidine 20 MG Tablet PO (09:39)
== END 2018-08-20 10:20 | disposition home or self-care (01) ==
PROVIDERS: Admitting Provider Orthopaedic Surgery; Family Provider Family Medicine; PCP Family Medicine; Referring Provider Orthopaedic Surgery; Visit Provider Orthopaedic Surgery
PROC: (CPT 27447; principal; 2018-08-19 06:50)
DX: M17.12 Unilateral primary osteoarthritis, left knee (principal); Z87.891 Personal history of nicotine dependence; Z79.899 Other long term (current) drug therapy; I10 Essential (primary) hypertension; I73.9 Peripheral vascular disease, unspecified; E78.00 Pure hypercholesterolemia, unspecified; M48.10 Ankylosing hyperostosis [Forestier], site unspecified
CPT/HCPCS: 27447; 64447; 36415; 80048; 85027; 87081; 88305; 88311; 93005; 96361; 96365; 96366; 96375; 96376; 97110; 97161; 97166; 97530; 97535; 99218; C1776; J7120; A4216; G0378; G0379; J2405

== ENCOUNTER → 2018-08-27 13:31 | Outpatient (CLI) | payer MEDICARE, OTHER, SELFPAY ==
[2018-08-19 10:58] VITALS: BMI 40.0
--- NOTE | 2018-08-27 13:34 | VDLE_ITS ---
Reason For Study: Pain Procedure LEFT Exam performed in department. GSV is normal. A preliminary report was called and/or faxed CFV is compressible, spontaneous, phasic, to Marge. competent, and demonstrates normal augmentation. FV is compressible, spontaneous, phasic, competent and demonstrates normal augmentation. POP V is compressible, spontaneous, phasic, competent and demonstrates normal augmentation. T/P Trunk is compressible. PTV is compressible. LT PerV is compressible. Interpretation Summary Deep veins of the left lower extremity are patent and compressible segmentally. There is no evidence of left lower extremity deep vein thrombosis. Valvular competence appears intact within the proximal deep venous system on the left . The left greater saphenous vein appears patent and compressible segmentally. Ordering Physician: Alejo Bird Referring Physician: Kevyn Sal MD Performed By: Shelbie Miller RVT
== END ==
PROVIDERS: Family Provider Family Medicine; PCP Family Medicine; Referring Provider Physician Assistant; Visit Provider Physician Assistant
DX: M79.605 Pain in left leg (principal)
CPT/HCPCS: 93971

== ENCOUNTER → 2018-11-05 11:03 | Outpatient (CLI) | payer MEDICARE, OTHER, SELFPAY ==
[2018-08-19 10:58] VITALS: BMI 40.0
[2018-11-05 12:09] LABS: Absolute Lymphocyte Count 1.52 X10^3/uL (0.83-4.51); Absolute Neutrophil Count 2.8 X10^3/uL (2.0-7.7); Basophil# 0.03 X10^3/uL; Basophil% 0.6 % (0-1); Hematocrit 39.3 % (40-54); Hemoglobin 13.1 g/dL (13.0-16.5); Lymphocyte # 1.52 X10^3/ul (4.0); Lymphocyte % 30.9 % (19-41); Mean Corp Hgb Conc 33.3 g/dL (32-36); Mean Corpuscular Hgb 30.6 pg (27.0-32.0); Mean Corpuscular Volume 91.8 fL (80-94); Mean Platelet Vol. 9.8 fl (6.2-12.0); Monocyte# 0.46 X10^3/uL; Monocyte% 9.3 % (0-10); NRBC Flagged by Analyzer 0 % (0-5); Platelet Count 159 K/mm3 (150-450); RBC Distribution Width CV 12.9 % (11.6-14.6); RBC Distribution Width SD 42.9 fl (35.1-43.9); Red Blood Count 4.28 M/mm3 (4.6-6.2); White Blood Count 4.9 K/mm3 (4.4-11.0)
[2018-11-05 12:40] LABS: AST(SGOT) 34 U/L (15-37); Alanine Aminotransfer ALT/SGPT 43 U/L (16-61); Albumin, Serum 3.5 g/dL (3.2-5.0); Alkaline Phosphatase 82 U/L (45-117); Anion Gap 8 (5-15); BUN 14 mg/dL (7-18); BUN/Creat Ratio 16.3 RATIO (10-20); Calcium,Total 8.7 mg/dL (8.5-10.1); Chloride 108 mmol/L (98-107); Creatinine, Serum 0.86 mg/dL (0.70-1.30); EST Glomerular Filtration Rate 94 mL/min (>60); Est Glom Filt Rate - Afr Amer 114 mL/min (>60); Globulin 3.5 g/dL (2.2-4.2); Glucose 99 mg/dL (74-106); Potassium 4.3 mmol/L (3.5-5.1); Sodium Level 143 mmol/L (136-145)
== END ==
PROVIDERS: Family Provider Family Medicine; PCP Family Medicine; Referring Provider Family Medicine; Visit Provider Internal Medicine Rheumatology
DX: M06.4 Inflammatory polyarthropathy (principal); M17.11 Unilateral primary osteoarthritis, right knee; M48.10 Ankylosing hyperostosis [Forestier], site unspecified
CPT/HCPCS: 36415; 80053; 85025

== ENCOUNTER → 2019-01-06 09:44 | Outpatient (CLI) | payer MEDICARE, OTHER, SELFPAY ==
[2018-12-26 13:15] VITALS: BMI 39.5
[2019-01-06 12:25] LABS: Absolute Lymphocyte Count 1.66 X10^3/uL (0.83-4.51); Absolute Neutrophil Count 4.7 X10^3/uL (2.0-7.7); Basophil# 0.03 X10^3/uL; Basophil% 0.4 % (0-1); Eosinophil# 0.13 X10^3/uL; Eosinophils% 1.8 % (0-5); Hematocrit 41.9 % (40-54); Hemoglobin 13.9 g/dL (13.0-16.5); Lymphocyte # 1.66 X10^3/ul (4.0); Lymphocyte % 23.3 % (19-41); Mean Corp Hgb Conc 33.2 g/dL (32-36); Mean Corpuscular Hgb 30.8 pg (27.0-32.0); Mean Corpuscular Volume 92.9 fL (80-94); Mean Platelet Vol. 10.3 fl (6.2-12.0); Monocyte# 0.61 X10^3/uL; Monocyte% 8.6 % (0-10); NRBC Flagged by Analyzer 0 % (0-5); Neutrophil # 4.66 X10^3/uL (2.7-7.7); Neutrophil % 65.6 % (47-70); Platelet Count 170 K/mm3 (150-450); RBC Distribution Width CV 13.1 % (11.6-14.6); RBC Distribution Width SD 44.1 fl (35.1-43.9); Red Blood Count 4.51 M/mm3 (4.6-6.2); White Blood Count 7.1 K/mm3 (4.4-11.0)
[2019-01-06 12:56] LABS: ALB/GLOB Ratio 0.9 RATIO (0.9-2.4); AST(SGOT) 30 U/L (15-37); Alanine Aminotransfer ALT/SGPT 38 U/L (16-61); Albumin, Serum 3.5 g/dL (3.2-5.0); Alkaline Phosphatase 76 U/L (45-117); Anion Gap 5 (5-15); BUN 12 mg/dL (7-18); BUN/Creat Ratio 12.4 RATIO (10-20); Calcium,Total 8.7 mg/dL (8.5-10.1); Chloride 106 mmol/L (98-107); Cholesterol 110 mg/dL (200); Creatinine, Serum 0.97 mg/dL (0.70-1.30); EST Glomerular Filtration Rate 82 mL/min (>60); Est Glom Filt Rate - Afr Amer 99 mL/min (>60); Globulin 3.9 g/dL (2.2-4.2); Glucose 106 mg/dL (74-106); High Density Lipoprotein 51 mg/dL; Potassium 4.2 mmol/L (3.5-5.1); Protein, Total 7.4 g/dL (6.4-8.2); Sodium Level 139 mmol/L (136-145); Triglycerides 60 mg/dL; Very Low Density Lipoprotein 12 mg/dL (5-40)
== END ==
PROVIDERS: Family Provider Family Medicine; PCP Family Medicine; Referring Provider Family Medicine; Visit Provider Family Medicine
DX: I70.8 Atherosclerosis of other arteries (principal); M48.10 Ankylosing hyperostosis [Forestier], site unspecified
CPT/HCPCS: 36415; 80053; 80061; 85025

== ENCOUNTER → 2019-02-24 11:32 | Outpatient (CLI) | payer MEDICARE, OTHER, SELFPAY ==
[2018-12-26 13:15] VITALS: BMI 39.5
[2019-02-24 12:50] LABS: Absolute Lymphocyte Count 1.82 X10^3/uL (0.83-4.51); Absolute Neutrophil Count 3.8 X10^3/uL (2.0-7.7); Basophil# 0.04 X10^3/uL; Basophil% 0.6 % (0-1); Eosinophils% 1.6 % (0-5); Hematocrit 43.8 % (40-54); Hemoglobin 14.5 g/dL (13.0-16.5); Lymphocyte # 1.82 X10^3/ul (4.0); Lymphocyte % 28.8 % (19-41); Mean Corp Hgb Conc 33.1 g/dL (32-36); Mean Corpuscular Volume 93.6 fL (80-94); Mean Platelet Vol. 10.1 fl (6.2-12.0); Monocyte# 0.53 X10^3/uL; Monocyte% 8.4 % (0-10); NRBC Flagged by Analyzer 0 % (0-5); Neutrophil % 60.3 % (47-70); Platelet Count 182 K/mm3 (150-450); RBC Distribution Width CV 13.1 % (11.6-14.6); RBC Distribution Width SD 44.4 fl (35.1-43.9); Red Blood Count 4.68 M/mm3 (4.6-6.2); White Blood Count 6.3 K/mm3 (4.4-11.0)
[2019-02-24 13:16] LABS: ALB/GLOB Ratio 0.9 RATIO (0.9-2.4); AST(SGOT) 36 U/L (15-37); Alanine Aminotransfer ALT/SGPT 43 U/L (16-61); Albumin, Serum 3.7 g/dL (3.2-5.0); Alkaline Phosphatase 80 U/L (45-117); Anion Gap 7 (5-15); BUN 13 mg/dL (7-18); BUN/Creat Ratio 13.5 RATIO (10-20); Chloride 106 mmol/L (98-107); Creatinine, Serum 0.96 mg/dL (0.70-1.30); EST Glomerular Filtration Rate 83 mL/min (>60); Est Glom Filt Rate - Afr Amer 100 mL/min (>60); Glucose 125 mg/dL (74-106); Protein, Total 7.7 g/dL (6.4-8.2); Sodium Level 142 mmol/L (136-145)
== END ==
PROVIDERS: Family Provider Family Medicine; PCP Family Medicine; Visit Provider Internal Medicine Rheumatology
DX: M06.4 Inflammatory polyarthropathy (principal); M17.11 Unilateral primary osteoarthritis, right knee; M48.10 Ankylosing hyperostosis [Forestier], site unspecified; K76.0 Fatty (change of) liver, not elsewhere classified; E78.5 Hyperlipidemia, unspecified; I10 Essential (primary) hypertension; K58.9 Irritable bowel syndrome, unspecified; F41.9 Anxiety disorder, unspecified; I73.9 Peripheral vascular disease, unspecified
CPT/HCPCS: 36415; 80053; 85025

== ENCOUNTER → 2019-04-17 11:23 | Outpatient (CLI) | payer MEDICARE, OTHER, SELFPAY ==
[2018-12-26 13:15] VITALS: BMI 39.5
--- NOTE | 2019-04-17 11:47 | EKG12_ITS ---
Test Reason : PREOP Blood Pressure : / mmHG Vent. Rate : 063 BPM Atrial Rate : 073 BPM P-R Int : 138 ms QRS Dur : 092 ms QT Int : 414 ms P-R-T Axes : 048 -14 -05 degrees QTc Int : 423 ms Sinus rhythm with occasional Premature ventricular complexes and Premature atrial complexes Inferior infarct (cited on or before 24-JAN-2012) Abnormal ECG Confirmed by ALYSSA ANDREWS, IDA ([id number]), newspaper managing editor ANDERSON HOUSTON ([id number]) on 04/18/2019 1:15:28 PM Referred By: Paul Jj Confirmed By:TIFFANY SHAH MD
[2019-04-17 12:50] LABS: Absolute Lymphocyte Count 1.91 X10^3/uL (0.83-4.51); Absolute Neutrophil Count 4.8 X10^3/uL (2.0-7.7); Basophil# 0.05 X10^3/uL; Basophil% 0.7 % (0-1); Eosinophils% 1.3 % (0-5); Hematocrit 43.6 % (40-54); Hemoglobin 14.5 g/dL (13.0-16.5); Lymphocyte # 1.91 X10^3/ul (4.0); Lymphocyte % 25.4 % (19-41); Mean Corp Hgb Conc 33.3 g/dL (32-36); Mean Corpuscular Hgb 30.9 pg (27.0-32.0); Mean Corpuscular Volume 92.8 fL (80-94); Mean Platelet Vol. 10.4 fl (6.2-12.0); Monocyte# 0.66 X10^3/uL; Monocyte% 8.8 % (0-10); NRBC Flagged by Analyzer 0 % (0-5); Neutrophil % 63.7 % (47-70); Platelet Count 165 K/mm3 (150-450); RBC Distribution Width CV 12.8 % (11.6-14.6); RBC Distribution Width SD 43.4 fl (35.1-43.9); White Blood Count 7.5 K/mm3 (4.4-11.0)
[2019-04-17 12:51] LABS: ALB/GLOB Ratio 0.9 RATIO (0.9-2.4); AST(SGOT) 33 U/L (15-37); Alanine Aminotransfer ALT/SGPT 43 U/L (16-61); Albumin, Serum 3.8 g/dL (3.2-5.0); Alkaline Phosphatase 81 U/L (45-117); Anion Gap 4 (5-15); BUN 13 mg/dL (7-18); BUN/Creat Ratio 12.3 RATIO (10-20); Calcium,Total 9.1 mg/dL (8.5-10.1); Chloride 106 mmol/L (98-107); Creatinine, Serum 1.06 mg/dL (0.70-1.30); EST Glomerular Filtration Rate 74 mL/min (>60); Est Glom Filt Rate - Afr Amer 90 mL/min (>60); Globulin 4.2 g/dL (2.2-4.2); Glucose 105 mg/dL (74-106); Sodium Level 139 mmol/L (136-145)
== END ==
PROVIDERS: Family Provider Family Medicine; PCP Family Medicine; Referring Provider Orthopaedic Surgery; Visit Provider Orthopaedic Surgery
DX: Z01.818 Encounter for other preprocedural examination (principal); Z01.810 Encounter for preprocedural cardiovascular examination; M06.4 Inflammatory polyarthropathy; M15.9 Polyosteoarthritis, unspecified; M17.11 Unilateral primary osteoarthritis, right knee; M48.10 Ankylosing hyperostosis [Forestier], site unspecified; K76.0 Fatty (change of) liver, not elsewhere classified; E78.5 Hyperlipidemia, unspecified
CPT/HCPCS: 36415; 80053; 85025; 93005

== ENCOUNTER → 2019-05-22 12:02 | Outpatient (CLI) | payer MEDICARE, OTHER, SELFPAY ==
[2018-12-26 13:15] VITALS: BMI 39.5
[2019-05-22 14:17] LABS: Absolute Lymphocyte Count 1.67 X10^3/uL (0.83-4.51); Absolute Neutrophil Count 4.3 X10^3/uL (2.0-7.7); Basophil# 0.03 X10^3/uL; Basophil% 0.4 % (0-1); Eosinophil# 0.19 X10^3/uL; Eosinophils% 2.8 % (0-5); Hematocrit 42.3 % (40-54); Hemoglobin 14.3 g/dL (13.0-16.5); Lymphocyte # 1.67 X10^3/ul (4.0); Lymphocyte % 24.4 % (19-41); Mean Corp Hgb Conc 33.8 g/dL (32-36); Mean Corpuscular Hgb 31.1 pg (27.0-32.0); Mean Platelet Vol. 10.2 fl (6.2-12.0); Monocyte# 0.69 X10^3/uL; Monocyte% 10.1 % (0-10); NRBC Flagged by Analyzer 0 % (0-5); Neutrophil # 4.25 X10^3/uL (2.7-7.7); Neutrophil % 62.2 % (47-70); Platelet Count 165 K/mm3 (150-450); RBC Distribution Width CV 12.2 % (11.6-14.6); RBC Distribution Width SD 40.7 fl (35.1-43.9); White Blood Count 6.8 K/mm3 (4.4-11.0)
[2019-05-22 14:36] LABS: Microalbumin,Random Urine 55.6 mg/L (NO RANGE EST.)
[2019-05-22 14:57] LABS: Cholesterol 97 mg/dL (200); High Density Lipoprotein 37 mg/dL; PSA,Total - Annual Screen 2.41 ng/mL (0.00-4.00); Triglycerides 92 mg/dL; Very Low Density Lipoprotein 18 mg/dL (5-40)
[2019-05-25 12:41] LABS: Testosterone, Total 275 ng/dL (264-916)
== END ==
PROVIDERS: PCP Family Medicine; Referring Provider Family Medicine; Visit Provider Family Medicine
DX: Z00.00 Encounter for general adult medical examination without abnormal findings (principal); M48.10 Ankylosing hyperostosis [Forestier], site unspecified; I70.8 Atherosclerosis of other arteries; N52.9 Male erectile dysfunction, unspecified; Z12.5 Encounter for screening for malignant neoplasm of prostate
CPT/HCPCS: 36415; 80061; 82043; 82306; 82570; 84153; 84402; 84403; 85025; G0103

== ENCOUNTER → 2019-12-22 05:55 | Outpatient (CLI) | payer MEDICARE, OTHER, SELFPAY ==
[2019-12-04 15:01] VITALS: BMI 39.5
--- NOTE | 2019-12-22 10:34 | STRESSREP ---
Stress Test Report Pharmacologic myocardial perfusion stress test. 69-year-old man with a history of peripheral vascular disease. Stress protocol: Resting EKG demonstrates normal sinus rhythm with a rate of 53 bpm normal intervals are noted resting blood pressure is 142/90 mmHg. 0.4 mg of regadenoson was infused per usual protocol followed by Intravenous saline flush injection continuous EKG monitoring was performed. The maximum heart rate attained was 78 bpm which was 51% of max impacted heart rate. The maximum workload was 1 metabolic equivalent. At rest and during peak infusion nonspecific ST-T wave changes were noted. Myocardial perfusion protocol. 14.9 mCi of technetium 99m sestamibi was injected at rest. 0.4 mg of regadenoson was infused per usual protocol at peak infusion 44.7 mCi of technetium 99m sestamibi was injected stress images were obtained stress and rest images were reconstructed and compared in the short axis vertical long horizontal long axis. Gated images was obtained Perfusion SPECT analysis: Review of the stress images demonstrate normal uptake of tracer noted in all areas of the myocardium and the resting images demonstrate a similar pattern. There is mild reduction of perfusion noted in the apex on the stress and resting images and an apical infarct cannot be completely excluded. Gated SPECT analysis: The gated ejection fraction is 52%. Conclusion: Normal pharmacologic myocardial perfusion stress test. Preserved ejection fraction.
== END ==
PROVIDERS: PCP Family Medicine; Referring Provider Nurse Practitioner Family; Visit Provider Nurse Practitioner Family
DX: R06.02 Shortness of breath (principal); R53.83 Other fatigue; I25.10 Atherosclerotic heart disease of native coronary artery without angina pectoris; I73.9 Peripheral vascular disease, unspecified; I10 Essential (primary) hypertension; E78.5 Hyperlipidemia, unspecified
CPT/HCPCS: 78452; 93017; A9500; A4216; J2785

== ENCOUNTER → 2020-03-19 12:11 | Outpatient (CLI) | payer MEDICARE, OTHER, SELFPAY ==
[2019-12-04 15:01] VITALS: BMI 39.5
[2020-03-19 15:28] LABS: Absolute Lymphocyte Count 2.34 X10^3/uL (0.83-4.51); Absolute Neutrophil Count 3.8 X10^3/uL (2.0-7.7); Basophil# 0.05 X10^3/uL; Basophil% 0.7 % (0-1); Eosinophils% 2.7 % (0-5); Hematocrit 42.6 % (40-54); Lymphocyte # 2.34 X10^3/ul (4.0); Lymphocyte % 31.4 % (19-41); Mean Corp Hgb Conc 32.9 g/dL (32-36); Mean Corpuscular Hgb 30.1 pg (27.0-32.0); Mean Corpuscular Volume 91.6 fL (80-94); Mean Platelet Vol. 9.9 fl (6.2-12.0); Monocyte# 0.99 X10^3/uL; Monocyte% 13.3 % (0-10); NRBC Flagged by Analyzer 0 % (0-5); Neutrophil # 3.84 X10^3/uL (2.7-7.7); Neutrophil % 51.5 % (47-70); Platelet Count 187 K/mm3 (150-450); RBC Distribution Width CV 12.1 % (11.6-14.6); RBC Distribution Width SD 40.5 fl (35.1-43.9); Red Blood Count 4.65 M/mm3 (4.6-6.2); White Blood Count 7.5 K/mm3 (4.4-11.0)
[2020-03-19 15:38] LABS: Vitamin D,25 Hydroxy 49.9 ng/mL
[2020-03-19 15:44] LABS: ALB/GLOB Ratio 0.9 RATIO (0.9-2.4); AST(SGOT) 30 U/L (15-37); Alanine Aminotransfer ALT/SGPT 35 U/L (16-61); Albumin, Serum 3.6 g/dL (3.2-5.0); Alkaline Phosphatase 72 U/L (45-117); Anion Gap 5 (5-15); BUN 13 mg/dL (7-18); BUN/Creat Ratio 14.5 RATIO (10-20); Calcium,Total 8.3 mg/dL (8.5-10.1); Chloride 105 mmol/L (98-107); EST Glomerular Filtration Rate 90 mL/min (>60); Est Glom Filt Rate - Afr Amer 108 mL/min (>60); Globulin 4.1 g/dL (2.2-4.2); Glucose 87 mg/dL (74-106); Magnesium 2.1 mg/dL (1.6-2.6); Potassium 3.9 mmol/L (3.5-5.1); Protein, Total 7.7 g/dL (6.4-8.2); Sodium Level 138 mmol/L (136-145)
== END ==
PROVIDERS: PCP Family Medicine; Referring Provider Family Medicine; Visit Provider Family Medicine
DX: R25.2 Cramp and spasm (principal); M48.10 Ankylosing hyperostosis [Forestier], site unspecified
CPT/HCPCS: 36415; 80053; 82306; 83735; 84443; 85025

== ENCOUNTER 2020-07-23 09:30 | Outpatient (RCR) | payer MEDICARE, OTHER, SELFPAY ==
[2019-12-04 15:01] VITALS: BMI 39.5
--- NOTE | 2020-07-16 11:45 | HP.OTEVAL_ITS ---
Patient's Visit Information ERICA CARLIN is a 69 year old M, referred to Occupational Therapy by Dr. Anne Marie David MD, with a diagnosis of right CTS. Date of Evaluation: 07/13/20 Occupational Therapist: Elba Martinez, FAUSTO/Lucita, CHT - Subjective This 69 year old male was seen for OT eval with dx of right CTS. pt states he had sx rigth CTS done within the last year. pt states he continued to have issues with his entire hand. pt states about 8 weeks ago he had another nerve conduction test that come back and said he had moderate carpal tunnel in right UE. pt states he has bad cramping in his right thumb and hand that causes the inability to move is wrist or fingers. pt states he has tingling on the back side of his right arm to his LF and RF. pt states he has had cramping in his hand. 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 pt states he tinkers with cars, motocycles etc. pt states he feels his right hand is worthless right now. pt states he has OA everywhere has had injuries - Pain right hand 2 Pain Intensity Range: 1, 6 - Objective following median nerve glides pt demo with muscle spasum and contraction of ECU and LF contractions. - ROM ROM Comments: pt demo full ROM of BUE - Strength Assembler Finger Buffs: right 80# left 80# Lateral Pinch: right 20# left 20# Tripod Pinch: right 20# left 20# Tip-to-Tip Pinch: right 14# left 14# - Sensation Thumb: right3.22 left 2.83 Index: right 2.83 left 2.83 Middle: right 2.83 left 2.83 Ring: right 3.22 left 2.83 Little: right 3.21 left 2.83 - Quick DASH-Disab of Arm,Shoulder& Hand Quick DASH Score: 40.9075 - Carpal Tunnel Syndrome Total Score of Symptom & Functional Sections: 22 - Goals Goal:: pt will report a decrease in right UE/hand cramping to less than 50% of the time by d/c. Goal:: pt will report a decrease in numb/tingling by 50% or greater by d/c - Rehabilitation General Assessment: pt demo with diffuse nerver involvement of ulnar, median.. limiting functional use of right UE with ADls and IADLs. Pt would benefit from skilled OT services 1-2x week for 4 weeks to decrease pts symptoms and improve function. Today therapist ed. pt on forearm stretching, and median and ulnar nerve glides. Following nerve glides pt had contraction of ECU, Abductor digiti min. this lasted for 20 sec. pt did feel better with forearm flex stretch- with palpation forearm does not feel tight. Therapy will cont. with focus of nerve glides and posture to decrease pts symptoms. Rehabilitation Potential: Good - Anticipated Interventions A/AAROM/PROM, Triggerpoint Release, Modalities, Joint Protection/Energy Conservation - Visit Plan Frequency: 2x /Week Duration: 3 Weeks TEXT: Thank you for the opportunity to evaluate your patient. For Medicare and Medicare HMO plans, please review the plan of care and approve it. It will need to be FAXED BACK to us at [phone] for Medicare purposes. Please let me know if there are questions or concerns regarding this plan of care. Physician Signature: Date:
--- NOTE | 2020-11-29 16:33 | HP.OT.NRP ---
ERICA CARLIN was seen in my office for initial evaluation on 07/13/20. The following Plan of Care was established for this patient: pt was last seen 07/23/20. pt has not schedule further apts and due to time laspe in services pt d/c at this time. Initial Frequency: 2x /Week Initial Duration: 3 Weeks Plan: cont w/nerve glides Anticipated Interventions: A/AAROM/PROM, Triggerpoint Release, Modalities, Joint Protection/Energy Conservation This patient was last seen in our office . Pertinent comments regarding their Occupational therapy will appear below: At this point I will be discontinuing this patient from occupational therapy. I would be happy to see this patient again in the future if found appropriate by the physician. Thank you! Elba Martinez, OTR/L, CHT
== END 2020-07-23 19:00 | disposition home or self-care (01) ==
LOC: OT 09:30
PROVIDERS: PCP Family Medicine; Referring Provider Orthopaedic Surgery Hand Surgery; Visit Provider Orthopaedic Surgery Hand Surgery
DX: G56.01 Carpal tunnel syndrome, right upper limb (principal)
CPT/HCPCS: 97035; 97110; 97140; 97166; 97530

== ENCOUNTER 2021-06-02 11:00 | Outpatient (RCR) | payer MEDICARE, OTHER, SELFPAY ==
--- NOTE | 2021-05-24 14:31 | HP.OTEVAL ---
Patient's Visit Information ERICA CARLIN is a 70 year old M, referred to Occupational Therapy by SILVIANO AUSTIN, with a diagnosis of lesion ulnar nerve, CTS. Date of Evaluation: 05/19/21 Occupational Therapist: Elba Martinez, FAUSTO/Lucita, CHT - Subjective This 70 year old male was seen for OT eval -. pt continues to have spasms that involves his right wrist, IF and thumb almost as if they are locking up - pt states this limits his ind. with work tasks- he has to stop and hold his hand until it relaxes. 2021 pt underwent at [facility] revision with ulnar nerve release-. pt states he developed an infection in his elbow about 4 weeks after the procedure and was placed on antibiotic three days ago- pt states swelling is better. ( pt received this antibiotic from his family ) therapist advised to notify surgeon to ensure she would agree with the antibiotic. - Pain right UE 0 - ROM Elbow: right -10/135 left 0/140 Wrist: right55/50 left 45/50 - Strength Dental Associate: right 90# left 85# Lateral Pinch: right 14# left 12# Tripod Pinch: right 14# left 10# Tip-to-Tip Pinch: right 8# left10# - Edema Elbow: right 36cm left 33cm Wrist: right 19cm left 18cm Other: edema due to the infection in his elbow - Sensation Thumb: right 3.22 left 2.83 Index: right 2.83 left 2.83 Middle: riight 2.83 left 2.83 Ring: right 3.22 left 2.83 Little: right 3.22 left 2.83 - Quick DASH-Disab of Arm,Shoulder& Hand Quick DASH Score: 34.0900 - Goals Goal:100% adherence to protocol: Yes Comment: Dr. David's ulnar nerve and median nerve release protocol Goal:Daily scar massage when approriate: Yes Goal:ROM equal to unaffected hand: Yes Goal:Dental Associate/Pinch strength at least 75% of unaffected hand: Yes Goal:No pain with affected hand use: Yes Goal:PIP Circumferences equal to unaffected hand: Yes Goal:Full use of affected hand in daily activities including: Yes Goal:Decrease scar hypersensitivity: Yes - Rehabilitation General Assessment: pt demo with a decrease in right wrist ROM, weakness of right tripod/lateral pinch and swelling in right UE- pt limited with his ADLs and IADLS due to the weakness. Pt would benefit from skilled OT services 2x week for 6 weeks to increase pts functional strength to return pt to PLOF. Today therapist ed. pt on ROM, scar mtg- gave elastomer for pt to wear at night at wrist scar- therapy will initiate strengthening as protocol allows- until then nerve glides/ will add in radial nerve glides as thumb, IF and wrist spasmed in extensor posturing- Therapy will follow Dr. David's protocol- pt agree to POC Rehabilitation Potential: Good - Anticipated Interventions A/AAROM/PROM, Strengthening, Scar Care, Triggerpoint Release, Modalities Other Interventions: nerve glides - Visit Plan Frequency: 2x /Week Duration: 6 Weeks TEXT: Thank you for the opportunity to evaluate your patient. For Medicare and Medicare HMO plans, please review the plan of care and approve it. It will need to be FAXED BACK to us at [phone] for Medicare purposes. Please let me know if there are questions or concerns regarding this plan of care. Physician Signature: Date:
--- NOTE | 2021-08-09 15:36 | HP.OTDCSUM ---
It has been my pleasure to treat ERICA CALRIN under orders from SILVIANO AUSTIN, for the diagnosis of lesion ulnar nerve, CTS for a total of 4 visit(s). Please see the following information for a summary of their discharge status. % Improvement: 75 Objective/Function: pt last seen on 06/02/21 for OT below are the measurements. right wrist ROM 65/60 increase from 55/50. right elbow +10/145 increase from -10/135. right rotary engraver strength 85#. right lateral pinch 10#. right tripod pinch 12#. wrist circumference 18cm. elbow circumference 33cm. edema resolved as circumference is equal to unaffected UE. pt demo open wound - due to this therapist rec'd if wound is not closed in 6 days to return for therapist to clean and dress Patient Goals: Regain Mobility, Use Hand/Wrist/Arm Normally Again Goal:100% adherence to protocol: Yes Goal:Daily scar massage when approriate: Yes Goal:ROM equal to unaffected hand: Yes Goal:Fruit Harvester Machine Operator/Pinch strength at least 75% of unaffected hand: Yes Goal:No pain with affected hand use: Yes Goal:PIP Circumferences equal to unaffected hand: Yes Goal:Full use of affected hand in daily activities including: Yes Goal:Decrease scar hypersensitivity: Yes Plan: pt to return if wound on elbow does not heal If there are questions or concerns regarding this patient's occupational therapy, please fell free to call me at [phone]. Thank you for the referral of this patient. Sincerely, Elba Martinez, OTR/L, CHT
== END 2021-06-02 19:00 | disposition home or self-care (01) ==
LOC: OT 11:00
PROVIDERS: PCP Family Medicine
DX: G56.21 Lesion of ulnar nerve, right upper limb (principal); G56.01 Carpal tunnel syndrome, right upper limb
CPT/HCPCS: 97035; 97140; 97166; 97530

== ENCOUNTER 2021-06-28 11:12 | Outpatient (CLI) | payer MEDICARE, OTHER, SELFPAY ==
[2021-06-28 15:07] LABS: Absolute Lymphocyte Count 2.35 X10^3/uL (0.83-4.51); Absolute Neutrophil Count 3.4 X10^3/uL (2.0-7.7); Basophil# 0.05 X10^3/uL; Basophil% 0.7 % (0-1); Eosinophil# 0.26 X10^3/uL; Eosinophils% 3.9 % (0-5); Hematocrit 42.5 % (40-54); Hemoglobin 14.1 g/dL (13.0-16.5); Lymphocyte # 2.35 X10^3/ul (0.83-4.51); Mean Corp Hgb Conc 33.2 g/dL (32-36); Mean Corpuscular Hgb 30.5 pg (27.0-32.0); Mean Platelet Vol. 10.1 fl (6.2-12.0); Monocyte# 0.67 X10^3/uL; NRBC Flagged by Analyzer 0 % (0-5); Neutrophil # 3.37 X10^3/uL (2.7-7.7); Neutrophil % 50.3 % (47-70); Platelet Count 193 K/mm3 (150-450); RBC Distribution Width CV 12.7 % (11.6-14.6); RBC Distribution Width SD 42.7 fl (35.1-43.9); Red Blood Count 4.62 M/mm3 (4.6-6.2); White Blood Count 6.7 K/mm3 (4.4-11.0)
[2021-06-28 15:37] LABS: Hemoglobin A1c 6.2 % (3.8-5.6)
[2021-06-28 15:41] LABS: Erythrocyte Sedimentation Rate 21 mm/hr (0-20)
[2021-06-28 15:46] LABS: ALB/GLOB Ratio 0.9 RATIO (0.9-2.4); AST(SGOT) 34 U/L (15-37); Alanine Aminotransfer ALT/SGPT 40 U/L (16-61); Albumin, Serum 3.6 g/dL (3.2-5.0); Alkaline Phosphatase 77 U/L (45-117); Anion Gap 7 (5-15); BUN 14 mg/dL (7-18); BUN/Creat Ratio 17.4 RATIO (10-20); Calcium,Total 8.7 mg/dL (8.5-10.1); Chloride 106 mmol/L (98-107); EST Glomerular Filtration Rate 101 mL/min (>60); Est Glom Filt Rate - Afr Amer 122 mL/min (>60); Globulin 3.9 g/dL (2.2-4.2); Glucose 115 mg/dL (74-106); Potassium 3.7 mmol/L (3.5-5.1); Protein, Total 7.5 g/dL (6.4-8.2); Sodium Level 138 mmol/L (136-145); Thyroid Stim Hormone (TSH) 2.47 uIU/mL (0.358-3.74)
[2021-06-30 16:11] LABS: Cytoplasmic Ab (C-ANCA) <1:20 titer (Neg:<1:20)
[2021-06-30 20:38] LABS: Perinuclear Ab (P-ANCA) <1:20 titer (Neg:<1:20)
== END 2021-06-28 23:59 | disposition home or self-care (01) ==
LOC: MFPLAB 11:17
PROVIDERS: PCP Family Medicine; Referring Provider Family Medicine; Visit Provider Family Medicine
DX: J32.9 Chronic sinusitis, unspecified (principal); M06.4 Inflammatory polyarthropathy; E66.01 Morbid (severe) obesity due to excess calories; Z68.41 Body mass index [BMI] 40.0-44.9, adult; E03.9 Hypothyroidism, unspecified
CPT/HCPCS: 36415; 80053; 83036; 84443; 85025; 85652; 86256

== ENCOUNTER → 2021-09-02 | Outpatient (CLI) | payer MEDICARE, OTHER, SELFPAY ==
[2021-09-02 13:58] LABS: Anion Gap 8 (5-15); BUN 13 mg/dL (7-18); BUN/Creat Ratio 13.8 RATIO (10-20); Calcium,Total 8.8 mg/dL (8.5-10.1); Chloride 107 mmol/L (98-107); Creatinine, Serum 0.94 mg/dL (0.70-1.30); EST Glomerular Filtration Rate 84 mL/min (>60); Est Glom Filt Rate - Afr Amer 102 mL/min (>60); Glucose 167 mg/dL (74-106); Potassium 4.1 mmol/L (3.5-5.1); Sodium Level 141 mmol/L (136-145)
== END | disposition home or self-care (01) ==
PROVIDERS: PCP Family Medicine; Referring Provider Nurse Practitioner Family; Visit Provider Nurse Practitioner Family
DX: I25.10 Atherosclerotic heart disease of native coronary artery without angina pectoris (principal); I10 Essential (primary) hypertension
CPT/HCPCS: 36415; 80048

== ENCOUNTER → 2021-10-19 | Outpatient (CLI) | payer MEDICARE, OTHER, SELFPAY ==
--- NOTE | 2021-10-19 11:30 | RAD_ITS ---
STUDY: X-RAY - RIGHT KNEE REASON FOR EXAM: Male, 70 years old. INJURY TECHNIQUE: 4 view(s) of the knee. COMPARISON: None. FINDINGS: There is demineralization of the visualized distal femur. There is demineralization of the tibia and fibula. Normal proximal tibiofibular articulation. There is severe degenerative arthrosis of the medial femorotibial compartment with severe joint space narrowing. There is moderate degenerative arthrosis of the lateral femorotibial compartment with moderate joint space narrowing. There is severe degenerative arthrosis of the patellofemoral articulation. The soft tissue structures are unremarkable. RAD/Knee 4 or More Views IMPRESSION: Moderate to severe tricompartmental osteoarthrosis. Electronically Signed: Tyler Alcazar DO at 18:34 EDT ,
== END | disposition home or self-care (01) ==
PROVIDERS: PCP Family Medicine; Visit Provider Family Medicine
DX: S89.90XA Unspecified injury of unspecified lower leg, initial encounter (principal)
CPT/HCPCS: 73564

== ENCOUNTER → 2021-11-10 | Outpatient (CLI) | payer MEDICARE, OTHER, SELFPAY ==
[2021-11-10 18:14] LABS: Vitamin B12 388 pg/mL (211-911)
[2021-11-10 18:21] LABS: Ferritin 39 ng/mL (26-388); Iron Binding Capacity,Total 341 ug/dL (250-450)
[2021-11-22 11:08] LABS: PROEL- Albumin 3.4 g/dL (2.9-4.4); PROEL- Alpha-1 Globulin 0.2 g/dL (0.0-0.4); PROEL- Alpha-2 Globulin 0.8 g/dL (0.4-1.0); PROEL- Beta Globulin 1.1 g/dL (0.7-1.3); PROEL- Gamma Globulin 1.4 g/dL (0.4-1.8); PROEL- Globulin, Total 3.5 g/dL (2.2-3.9); PROEL- TOTAL PROTEIN 6.9 g/dL (6.0-8.5); PROELU- Albumin, Urine 45.9 % (.); PROELU- Alpha-1-Globulin,Ur 5.7 % (.); PROELU- Alpha-2-Globulin,Ur 12.2 % (.); PROELU- Beta Globulin, Ur 20.6 % (.); PROELU- Gamma Globulin, Ur 15.7 % (.); Total Protein, Ur 19.7 mg/dL (Not Estab.)
[2021-11-23 12:34] LABS: Arsenic 7245 2 ug/L (0-9); Lead, Blood < 1 ug/dL (0-4); Mercury, Blood 85324 < 1.0 ug/L (0.0-14.9)
== END | disposition home or self-care (01) ==
LOC: MFPLAB 14:20
PROVIDERS: PCP Family Medicine; Visit Provider Family Medicine
DX: G62.9 Polyneuropathy, unspecified (principal); E88.81 Metabolic syndrome and other insulin resistance
CPT/HCPCS: 36415; 82175; 82607; 82728; 82746; 83550; 83655; 83825; 84165; 84166

== ENCOUNTER → 2022-02-16 | Outpatient (CLI) | payer MEDICARE, OTHER, SELFPAY ==
[2022-02-16 15:21] LABS: Absolute Lymphocyte Count 2.12 X10^3/uL (0.83-4.51); Absolute Neutrophil Count 4.2 X10^3/uL (2.0-7.7); Basophil# 0.06 X10^3/uL; Basophil% 0.8 % (0-1); Hematocrit 42.8 % (40-54); Hemoglobin 14.1 g/dL (13.0-16.5); Lymphocyte # 2.12 X10^3/ul (0.83-4.51); Lymphocyte % 28.6 % (19-41); Mean Corp Hgb Conc 32.9 g/dL (32-36); Mean Corpuscular Hgb 30.2 pg (27.0-32.0); Mean Corpuscular Volume 91.6 fL (80-94); Mean Platelet Vol. 9.7 fl (6.2-12.0); Monocyte# 0.76 X10^3/uL; Monocyte% 10.2 % (0-10); NRBC Flagged by Analyzer 0 % (0-5); Neutrophil # 4.15 X10^3/uL (2.7-7.7); Platelet Count 213 K/mm3 (150-450); RBC Distribution Width CV 12.5 % (11.6-14.6); RBC Distribution Width SD 41.5 fl (35.1-43.9); Red Blood Count 4.67 M/mm3 (4.6-6.2); White Blood Count 7.4 K/mm3 (4.4-11.0)
[2022-02-16 15:54] LABS: Hemoglobin A1c 6.3 % (3.8-5.6)
[2022-02-16 16:03] LABS: ALB/GLOB Ratio 0.8 RATIO (0.9-2.4); AST(SGOT) 35 U/L (15-37); Alanine Aminotransfer ALT/SGPT 38 U/L (16-61); Albumin, Serum 3.4 g/dL (3.2-5.0); Alkaline Phosphatase 77 U/L (45-117); Anion Gap 7 (5-15); BUN 15 mg/dL (7-18); BUN/Creat Ratio 15.3 RATIO (10-20); Calcium,Total 8.6 mg/dL (8.5-10.1); Chloride 104 mmol/L (98-107); Creatinine, Serum 0.98 mg/dL (0.70-1.30); EST Glomerular Filtration Rate 80 mL/min (>60); Est Glom Filt Rate - Afr Amer 97 mL/min (>60); Globulin 4.3 g/dL (2.2-4.2); Glucose 107 mg/dL (74-106); Potassium 4.1 mmol/L (3.5-5.1); Protein, Total 7.7 g/dL (6.4-8.2); Sodium Level 138 mmol/L (136-145); T4 Free Direct 0.72 ng/dL (0.76-1.46); Thyroid Stim Hormone (TSH) 3.62 uIU/mL (0.358-3.74)
== END | disposition home or self-care (01) ==
LOC: MFPLAB 14:16
PROVIDERS: PCP Family Medicine; Visit Provider Family Medicine
DX: E03.9 Hypothyroidism, unspecified (principal); M48.10 Ankylosing hyperostosis [Forestier], site unspecified; E88.81 Metabolic syndrome and other insulin resistance
CPT/HCPCS: 36415; 80053; 83036; 84439; 84443; 85025

== ENCOUNTER → 2022-05-17 | Outpatient (CLI) | payer MEDICARE, SELFPAY ==
[2022-05-17 12:20] LABS: Erythrocyte Sedimentation Rate 11 mm/hr (0-20)
[2022-05-17 12:23] LABS: Hematocrit 43.6 % (40-54); Hemoglobin 14.6 g/dL (13.0-16.5); Mean Corp Hgb Conc 33.5 g/dL (32-36); Mean Corpuscular Hgb 30.5 pg (27.0-32.0); Mean Corpuscular Volume 91.2 fL (80-94); Platelet Count 214 K/mm3 (150-450); RBC Distribution Width CV 12.5 % (11.6-14.6); RBC Distribution Width SD 41.3 fl (35.1-43.9); Red Blood Count 4.78 M/mm3 (4.6-6.2); White Blood Count 6.8 K/mm3 (4.4-11.0)
[2022-05-17 13:18] LABS: ALB/GLOB Ratio 0.9 RATIO (0.9-2.4); AST(SGOT) 32 U/L (15-37); Alanine Aminotransfer ALT/SGPT 32 U/L (16-61); Albumin, Serum 3.6 g/dL (3.2-5.0); Alkaline Phosphatase 65 U/L (45-117); Anion Gap 7 (5-15); BUN 14 mg/dL (7-18); CPK Total, Creatine Kinase 262 U/L (39-308); Calcium,Total 9.1 mg/dL (8.5-10.1); Chloride 105 mmol/L (98-107); Creatinine, Serum 0.87 mg/dL (0.70-1.30); EST Glomerular Filtration Rate 92 mL/min (>60); Est Glom Filt Rate - Afr Amer 111 mL/min (>60); Globulin 4.2 g/dL (2.2-4.2); Glucose 121 mg/dL (74-106); Potassium 4.1 mmol/L (3.5-5.1); Protein, Total 7.8 g/dL (6.4-8.2); Rheumatoid Factor < 10.0 IU/mL (<15); Sodium Level 139 mmol/L (136-145); T4 Free Direct 0.79 ng/dL (0.76-1.46); Thyroid Stim Hormone (TSH) 2.93 uIU/mL (0.358-3.74)
[2022-05-19 13:07] LABS: Vitamin D 1,25-Dihydroxy 22.7 pg/mL (24.8-81.5)
[2022-05-19 18:27] LABS: ANTINUCLEAR ANTIBODIES DIRECT Negative (Negative)
[2022-05-23 22:07] LABS: Aldolase 4.6 U/L (3.3-10.3); Free Kappa Light Chains 42.9 mg/L (3.3-19.4); Free Lambda Light Chains 25.3 mg/L (5.7-26.3); Vitamin B1, Thiamine 134.4 nmol/L (66.5-200.0)
[2022-05-23 22:26] LABS: HLA B27 Negative (.); Myoglobin, Serum 96 ng/mL (28-72)
== END | disposition home or self-care (01) ==
LOC: MFPLAB 11:11
PROVIDERS: PCP Family Medicine; Referring Provider Family Medicine; Visit Provider Psychiatry & Neurology Neurology
DX: M19.90 Unspecified osteoarthritis, unspecified site (principal); G62.9 Polyneuropathy, unspecified; R25.2 Cramp and spasm; R79.89 Other specified abnormal findings of blood chemistry; Z86.39 Personal history of other endocrine, nutritional and metabolic disease
CPT/HCPCS: 36415; 80053; 81374; 82085; 82550; 82652; 83735; 83874; 83883; 84425; 84439; 84443; 85027; 85652; 86038; 86225; 86235; 86431

== ENCOUNTER 2022-06-07 14:30 | Outpatient (RCR) | payer MEDICARE, SELFPAY ==
--- NOTE | 2022-05-30 12:43 | HP.PTEVAL ---
Patient's Visit Information ERICA CARLIN is a 71 year old M referred to Physical Therapy by Dr. Arden Mejia MD with a diagnosis of neck pain, muscle cramps, B CT. Date of Evaluation: 05/30/22 Physical Therapist: HARRISON Light - Visit Plan Frequency: 1-2x /Week Duration: 4 Weeks Plan: Pt only wants a HEP for his neck at this time. He will call in in 1 week to let me know how the stretching is doing and whether he wants to come back for more PT. Thinking that pt will need some manual/mechanical distraction/traction, stretching of the upper c-spine, levator, mid and lower traps with HEP and some postural exercises with HEP if he decides that he wants additional PT 1-2X/ week for 4 weeks. Will need to set additional goals if pt wants to continue with additional PT - Subjective Pt reports that he went to Neurologist. He is having trouble with his hands and 2 surgeries on the R hand. 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 Dr was going over his aches and pain and he mentioned that he had a stiff neck. He will eventually do an MRI so that he can get exercises to work on his neck at home. He is here to learn what he can do at home to exercise his neck. His main problem is his hands...carpal tunnel and nerve problem in couple of his fingers and cramping in his hands after use. He has surgery on his ulnar nerve but having trouble with certain activities and they stuck and will physically have to pull it back into position (mainly his thumb and pointer finger). His cramping in his R hand happens daily and eating with a fork will trigger it. C-spine pain when he turns his neck left and right and he hears a lot of cracking. He gets mild RODRIGUEZ when his neck is hurting. Most of the time he has upper c-spine pain but it can be the entire neck. He only has weakness in his arm when his fingers don't work. He did not take an x-ray of his neck recently but he did have very old x-rays and showed some narrowing years ago. Pt does have tingling in his lat 3 digits on the R hand. - Pain R hand pain Pain Intensity (Out of 10): 0 c-spine Pain Intensity (Out of 10): 1 RODRIGUEZ Pain Intensity (Out of 10): 0 - Objective C-spine AROM: flex 100%, ext 25%, Rot R and L 75%, SB R 25% B. UE MMT: R shoulder flex 16.3 and L shoulder flex 18.6. R shld abd 18.6 and L 20.7. R shld ER 16.4 and L 20.4. R IR 13.3 and L IR 18.3. Bicep reflex: 2+/3 B. R handed: R packing machine tender strength: 80 and L 65#. Chin tucks 2 X 10 with 3 rolled up towels pt really felt the stretch. C-spine distraction felt much better for the patient. Pt had increase R shoulder pain with corner stretch and doorway stretch with both arms at the same time... - Balance/Special Test Scores Oswestry Neck Score: 15 - Goals Goal 1:: I HEP Goal Time Frame: 1 Week - Rehabilitation Potential Rehabilitation Potential: Good - Anticipated Interventions Patient/Client Instruction: Educate patient on: Condition, Plan of Care For the Purpose of:: To decrease pain, To increase ROM, To improve nutrient delivery to tissue, To improve muscle performance and motor function, To improve ability to perform ADL's, To increase tolerance to activity/condition/position, To improve performance and independence with ADL's, To decrease level of supervision to perform tasks, To improve health of tissue, To decrease soft tissue restriction, To increase flexibility/ROM Therapeutic Exercise to Include: Strength training, Postural training, Flexibilty training, Neuromotor development, Passive ROM, Active ROM, Scapular Strength/Stabilization For the Purpose of:: To decrease pain, To increase ROM, To improve nutrient delivery to tissue, To improve muscle performance and motor function, To increase tolerance to activity/condition/position, To improve performance and independence with ADL's, To decrease level of supervision to perform tasks, To improve health of tissue, To decrease soft tissue restriction, To increase flexibility/ROM Manual Therapy Techniques to Include: Mobilization, Passive ROM, Soft tissue mobilization For the Purpose of:: To decrease pain, To increase ROM, To improve nutrient delivery to tissue, To improve muscle performance and motor function, To improve ability to perform ADL's, To increase tolerance to activity/condition/position, To improve health of tissue, To decrease soft tissue restriction, To increase flexibility/ROM Cryotherapy (ice pack, ice massage): Yes Thermo therapy (hot pack): Yes Intermittent cervical traction: Yes For the Purpose of:: To decrease pain, To decrease swelling/inflammation, To increase ROM, To improve nutrient delivery to tissue, To increase tolerance to activity/condition/position, To improve health of tissue, To decrease soft tissue restriction, To increase flexibility/ROM Thank you for the opportunity to evaluate your patient. For Medicare and Medicare HMO plans, please review the plan of care and approve it. It will need to be FAXED BACK to us at [phone] for Medicare purposes. For Medicare only, by signing this I certify the plan of care. Please let me know if there are questions or concerns regarding this plan of care. Physician Signature: Date:
--- NOTE | 2022-07-26 15:02 | HP.OTEVAL ---
Patient's Visit Information ERICA CARLIN is a 71 year old M, referred to Occupational Therapy by Dr. Arden Mejia MD, with a diagnosis of BCTS. Date of Evaluation: 06/07/22 Occupational Therapist: Elba Martinez, FAUSTO/Lucita, CHT - Subjective This 71 year old male was seen for OT eval with dx of CTS - custom orthosis. pt has suffered for over 3 years with CTS and has had [facility] with little to no change in symptoms. pt is seeing Neurologist to help him figure out what is going on. pt here today for custom orthosis for night use per order. - ROM ROM Comments: pt demo ROM of wrist and digits WFL. pt demo OA deformities in bilateral hands - Sensation Sensation Comments: tingling - Special Tests Tinel's: right /left positive - Quick DASH-Disab of Arm,Shoulder& Hand Quick DASH Score: 36.3625 - Goals Goal:: Pt will demo ind. Donning/doffing of custom orthosis by end of 1st session. Pt will demonstrate understanding of orthosis use and precautions by end of 1st session and demonstrate knowledge of returning to clinic if orthosis needs adj. to increase comfort by end of 1st session. - Rehabilitation General Assessment: pt demo positive CTS and has order for custom orthosis (wrist cock-up for night use) - Today therapist eugenio. custom orthosis for bilateral wrist- pt ed. in donning and doffing of orthosis- ed. on skin care and precautions. pt to return to clinic if orthosis need adj. to increase comfort. pt demo understanding and agree to POC. Rehabilitation Potential: Good - Anticipated Interventions Orthoses, Home Program - Visit Plan TEXT: Thank you for the opportunity to evaluate your patient. For Medicare and Medicare HMO plans, please review the plan of care and approve it. It will need to be FAXED BACK to us at [phone] for Medicare purposes. Please let me know if there are questions or concerns regarding this plan of care. Physician Signature: Date:
--- NOTE | 2022-07-26 15:02 | HP.OTDCSUM ---
It has been my pleasure to treat ERICA CARLIN under orders from Dr. Arden Mejia MD, for the diagnosis of BCTS for a total of 1 visit(s). Please see the following information for a summary of their discharge status. Patient Goals: Other Other: orthosis use Goal:: Pt will demo ind. Donning/doffing of custom orthosis by end of 1st session. Pt will demonstrate understanding of orthosis use and precautions by end of 1st session and demonstrate knowledge of returning to clinic if orthosis needs adj. to increase comfort by end of 1st session. If there are questions or concerns regarding this patient's occupational therapy, please fell free to call me at [phone]. Thank you for the referral of this patient. Sincerely, Elba Martinez, OTR/L, CHT
== END 2022-06-07 19:00 | disposition home or self-care (01) ==
LOC: OT 14:30
PROVIDERS: PCP Family Medicine; Referring Provider Psychiatry & Neurology Neurology; Visit Provider Psychiatry & Neurology Neurology
DX: G56.03 Carpal tunnel syndrome, bilateral upper limbs (principal); M54.2 Cervicalgia; R25.2 Cramp and spasm; M19.90 Unspecified osteoarthritis, unspecified site
CPT/HCPCS: 97162; 97165; 97760

== ENCOUNTER → 2022-06-26 | Outpatient (CLI) | payer MEDICARE, SELFPAY ==
--- NOTE | 2022-06-26 14:37 | NEURO_ITS ---
NCS and/or EMG Patient Report Ordering Doctor: Arden Mejia DATE OF SERVICE: 06/26/22 Indication: Intermittent cramps in the right hand and forearm. Associated with intermittent numbness and tingling in digits 4/5. On the left, there is a constant pain in the wrist. History of chronic neck pain as well as bilateral carpal tunnel (status post release on the right). Findings: Nerve conduction studies were performed in the right and left upper extremities. The right median motor study recording the abductor pollicis brevis showed a borderline amplitude, prolonged distal latency and normal conduction velocity. The right ulnar motor study recording the abductor digiti minimi showed a normal amplitude, normal distal latency and normal conduction velocity. No conduction block or focal slowing was present across the elbow. The right median sensory response recording digit two showed a reduced amplitude, prolonged latency and markedly slowed conduction velocity. The right ulnar sensory response recording digit five showed a normal amplitude, latency and conduction velocity. The right radial sensory response recording over the extensor snuff box showed a normal amplitude, latency and conduction velocity. The left median motor study recording the abductor pollicis brevis showed a normal amplitude, prolonged distal latency and slowed conduction velocity. The left ulnar motor study recording the abductor digiti minimi showed a normal amplitude, normal distal latency and normal conduction velocity. No conduction block or focal slowing was present across the elbow. The left median sensory response recording digit two showed a borderline amplitude, borderline latency and slowed conduction velocity. The left ulnar sensory response recording digit five showed a normal amplitude, latency and conduction velocity. The left radial sensory response recording over the extensor snuff box showed a normal amplitude, latency and conduction velocity. Right median-ulnar lumbrical / interosseous motor latencies showed a prolonged median latency compared to the ulnar. Left median-ulnar lumbrical / interosseous motor latencies showed a prolonged median latency compared to the ulnar. Needle EMG of the right upper extremity muscles was performed. No denervation was seen in any muscle. Motor units in the abductor pollicis brevis, first dorsal interosseous and extensor indicis proprius were large amplitude, long duration with slightly reduced recruitment. All other motor unit morphology, ac tivation and recruitment patterns were normal. Needle EMG of the left upper extremity muscles was performed. No denervation was seen in any muscle. Motor units in the abductor pollicis brevis were large amplitude, long duration with slightly reduced recruitment.All other motor unit morphology, activation and recruitment patterns were normal. Impression: This is an abnormal study. 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 There is no active denervation of the thenar muscles to suggest ongoing secondary motor axon loss. These findings are compatible with the clinical diagnosis of carpal tunnel syndrome. In addition, there is electrophysiologic evidence of a superimposed, chronic, right, C8/T1 radiculopathy in the right upper extremity. Zion Enciso D.O. Multi Select Codes Neurology Neurology Interp Codes: 21827-48 Musc test done w/n test comp (interp) (Qty:2) and 22995-57 Nrv cndj test 13/> studies (interp)
== END | disposition home or self-care (01) ==
LOC: PSN 12:51
PROVIDERS: PCP Family Medicine; Visit Provider Psychiatry & Neurology Neurology
DX: G56.03 Carpal tunnel syndrome, bilateral upper limbs (principal); M54.2 Cervicalgia; R25.2 Cramp and spasm
CPT/HCPCS: 95886; 95913

== ENCOUNTER → 2022-09-18 | Outpatient (CLI) | payer MEDICARE, SELFPAY ==
[2022-09-21 14:10] LABS: Albumin 3.6 g/dL (2.9-4.4); Alpha-1-Globulins 0.2 g/dL (0.0-0.4); Alpha-2-Globulins 0.8 g/dL (0.4-1.0); Gamma Globulin 1.5 g/dL (0.4-1.8); Immunoglobulin A 469 mg/dL (61-437); Immunoglobulin G 1417 mg/dL (603-1613); Immunoglobulin M 125 mg/dL (20-172); PROEL- TOTAL PROTEIN 7.3 g/dL (6.0-8.5)
== END | disposition home or self-care (01) ==
LOC: MTLAB 13:08
PROVIDERS: PCP Family Medicine; Referring Provider Psychiatry & Neurology Neurology; Visit Provider Psychiatry & Neurology Neurology
DX: G62.9 Polyneuropathy, unspecified (principal)
CPT/HCPCS: 36415; 82784; 84165; 86334; 86335

== ENCOUNTER → 2023-06-26 | Outpatient (CLI) | payer MEDICARE, SELFPAY ==
[2023-06-26 15:48] LABS: Absolute Lymphocyte Count 1.96 X10^3/uL (0.83-4.51); Absolute Neutrophil Count 3.9 X10^3/uL (2.0-7.7); Basophil# 0.06 X10^3/uL; Basophil% 0.9 % (0-1); Eosinophil# 0.22 X10^3/uL; Eosinophils% 3.3 % (0-5); Hematocrit 42.9 % (40-54); Hemoglobin 14.1 g/dL (13.0-16.5); Lymphocyte # 1.96 X10^3/ul (0.83-4.51); Mean Corp Hgb Conc 32.9 g/dL (32-36); Mean Corpuscular Hgb 30.3 pg (27.0-32.0); Mean Corpuscular Volume 92.3 fL (80-94); Monocyte# 0.65 X10^3/uL; Monocyte% 9.6 % (0-10); NRBC Flagged by Analyzer 0 % (0-5); Neutrophil # 3.85 X10^3/uL (2.7-7.7); Neutrophil % 56.9 % (47-70); Platelet Count 274 K/mm3 (150-450); RBC Distribution Width CV 12.9 % (11.6-14.6); RBC Distribution Width SD 42.7 fl (35.1-43.9); Red Blood Count 4.65 M/mm3 (4.6-6.2); White Blood Count 6.8 K/mm3 (4.4-11.0)
[2023-06-26 16:02] LABS: Erythrocyte Sedimentation Rate 29 mm/hr (0-20)
[2023-06-26 16:19] LABS: Hemoglobin A1c 5.4 % (3.8-5.6)
[2023-06-26 16:32] LABS: ALB/GLOB Ratio 0.7 RATIO (0.9-2.4); AST(SGOT) 31 U/L (15-37); Alanine Aminotransfer ALT/SGPT 29 U/L (16-61); Albumin, Serum 3.3 g/dL (3.2-5.0); Alkaline Phosphatase 74 U/L (45-117); Anion Gap 8 (5-15); BUN 11 mg/dL (7-18); BUN/Creat Ratio 11.9 RATIO (10-20); CRP 7.65 mg/L (0.0-3.0); Calcium,Total 9.4 mg/dL (8.5-10.1); Chloride 105 mmol/L (98-107); Creatinine, Serum 0.92 mg/dL (0.70-1.30); EST Glomerular Filtration Rate 86 mL/min (>60); Est Glom Filt Rate - Afr Amer 104 mL/min (>60); Globulin 4.6 g/dL (2.2-4.2); Glucose 105 mg/dL (74-106); Lipase 32 U/L (13-75); Potassium 4.2 mmol/L (3.5-5.1); Protein, Total 7.9 g/dL (6.4-8.2); Sodium Level 139 mmol/L (136-145)
[2023-06-28 12:09] LABS: PROEL- A/G Ratio 0.8 (0.7-1.7); PROEL- Albumin 3.1 g/dL (2.9-4.4); PROEL- Alpha-1 Globulin 0.3 g/dL (0.0-0.4); PROEL- Alpha-2 Globulin 0.9 g/dL (0.4-1.0); PROEL- Beta Globulin 1.2 g/dL (0.7-1.3); PROEL- Gamma Globulin 1.6 g/dL (0.4-1.8); PROEL- TOTAL PROTEIN 7.1 g/dL (6.0-8.5); PROEL-M-Spike Not Observed g/dL (Not Observed)
== END | disposition home or self-care (01) ==
LOC: MFPLAB 11:18
PROVIDERS: PCP Family Medicine; Visit Provider Family Medicine
DX: M06.4 Inflammatory polyarthropathy (principal); R11.0 Nausea; M48.10 Ankylosing hyperostosis [Forestier], site unspecified; R73.03 Prediabetes
CPT/HCPCS: 36415; 80053; 83036; 83690; 84165; 85025; 85652; 86140

== ENCOUNTER → 2024-02-22 | Outpatient (CLI) | payer MEDICARE, SELFPAY ==
--- NOTE | 2024-02-22 12:43 | ADU_ITS ---
Reason For Study: Claudication Right Velocities Left Velocities Ext. Iliac Artery, dist = 105.8 cm./sec. Ext Iliac Artery, dist = 145.0 cm./sec. Common Femoral Artery, prox = 120.4 cm./sec. Common Femoral Artery, prox = 131.9 cm./sec. Supf Femoral Artery, prox = 109.5 cm./sec. Supf. Femoral Artery, prox = 87.5 cm./sec. Supf Femoral Artery, mid = 70.0 cm./sec. Supf. Femoral Artery, mid = 47.2 cm./sec. SFA Stent noted at Mid SFA SFA Stent noted at Mid SFA Prox Stent - 380.3 cm/s Prox Stent - 51.5 cm/s Mid Stent - 213.8 cm/s Mid Stent - 68.0 cm/s Dist Stent - 443.0 cm/s. Dist Stent - 40.6 cm/s. Supf Femoral Artery, dist. = 100.8 cm./sec. Supf. Femoral Artery, dist = 39.5 cm./sec. Profunda Femoral Artery = 144.7 cm./sec. Profunda Femoral Artery = 134.5 cm./sec. Popliteal Artery, prox. = 85.4 cm./sec. Popliteal Artery, proximal, = 43.9 cm./sec. Popliteal Artery, dist = 67.8 cm./sec. Popliteal Artery, distal = 60.3 cm./sec. Post. Tibial Artery, mid = 66.2 cm./sec. Post Tibial Artery, mid = 48.3 cm./sec. Post. Tibial Artery, dist = 55.1 cm./sec. Post Tibial Artery, dist. = 41.7 cm./sec. Peroneal Artery, mid = 50.2 cm./sec. Peroneal Artery, mid = 25.2 cm./sec. Peroneal Artery,dist = 36.7 cm./sec. Ant.Tibial Artery, prox = 63.6 cm./sec. Ant. Tibial Artery, prox = 60.4 cm./sec. Ant Tibial Artery, mid = 45.0 cm./sec. Ant. Tibial Artery, mid = 61.3 cm./sec. Ant. Tibial Artery, distal = 48.3 cm./sec. Unable to visualize prox Fred A and CREPE MACHINE OPERATOR. Unable to visualize prox CREPE MACHINE OPERATOR and Fred A Unable to visualize dist ANNIE. Unable to visualize distal Fred A. Procedure The exam was diagnostic. Exam performed in department. VL/US Art Duplex Bilat Lower Ext Interpretation Summary Right superficial femoral artery stent with >75% stenosis. Unable to visualize tibial arteries in continuity. Left superficial femoral artery stent patent with no stenosis identified. Unabl e to visualize tibial arteries in continuity. Ordering Physician: Siri Sarkar Referring Physician: Kevyn Sal Performed By: Milo Garcia RVT
--- NOTE | 2024-02-22 12:43 | ART_ITS ---
Reason For Study: CLAUDICATION Procedure A bilateral lower extremity continuous wave Doppler with analog waveform analysis,segmental pressures,and ankle brachial indexes with exercise. Left Segmental Pressures Left brachial= 165mmHg. Left calf = 156mmHg. Left posterior tibial artery = 129mmHg. Left dorsalis pedis artery = 127mmHg. Left digit = 106 mmHg. The left posterior tibial artery waveforms are biphasic. The left dorsalis pedis waveforms are biphasic. Right Segmental Pressures Right brachial= 167mmHg. Right calf = 143mmHg. Right posterior tibial artery = 141mmHg. Right dorsalis pedis artery = 136mmHg. Right digit = 137 mmHg. The right posterior tibial artery waveforms are biphasic. The right dorsalis pedis waveforms are biphasic. Indices The right ankle brachial index by the posterior tibial artery is 0.84. The right ankle brachial index by the dorsalis pedis is 0.81. The right digital-brachial index is 0.82. The right post exercise ankle brachial index is 0.76. The left ankle brachial index by the posterior tibial artery is 0.77. The left ankle brachial index by the dorsalis pedis is 0.76. The left digital-brachial index is 0.63. The left post exercise ankle brachial index is 0.77. VL/Lower Ext Art Exam w/ Exercise Interpretation Summary Right MAURISIO 0.84, moderate arterial insufficiency. Doppler/PVR waveforms of the r ight leg moderately diminished at rest. Right lower extremity exhibits no change in response to exercise. Left MAURISIO 0.77, moderate arterial insufficiency. Doppler/PVR waveforms of the le ft leg moderately diminihsed at rest. Left lower extremity exhibits no change in response to exercise. Ordering Physician: Siri Sarkar Referring Physician: Kevyn Sal Performed By: Milo Garcia RVDung
== END | disposition home or self-care (01) ==
PROVIDERS: PCP Family Medicine; Referring Provider Physician Assistant; Visit Provider Physician Assistant
DX: I73.9 Peripheral vascular disease, unspecified (principal)
CPT/HCPCS: 93924; 93925

== ENCOUNTER 2024-04-03 10:15 | Day surgery (SDC) | payer MEDICARE, SELFPAY ==
[2024-04-01 08:01] VITALS: BMI 42.0
[2024-04-03 10:30] LABS: Hematocrit 44.4 % (40-54); Hemoglobin 14.6 g/dL (13.0-16.5); Mean Corp Hgb Conc 32.9 g/dL (32-36); Mean Corpuscular Volume 91.2 fL (80-94); Mean Platelet Vol. 9.4 fl (6.2-12.0); Platelet Count 195 K/mm3 (150-450); RBC Distribution Width CV 12.3 % (11.6-14.6); RBC Distribution Width SD 41.1 fl (35.1-43.9); Red Blood Count 4.87 M/mm3 (4.6-6.2); White Blood Count 8.8 K/mm3 (4.4-11.0)
[2024-04-03 10:51] LABS: Anion Gap 3 (5-15); BUN 15 mg/dL (7-18); BUN/Creat Ratio 15.9 RATIO (10-20); Calcium,Total 9.3 mg/dL (8.5-10.1); Chloride 106 mmol/L (98-107); Creatinine, Serum 0.94 mg/dL (0.70-1.30); EST Glomerular Filtration Rate 83 mL/min (>60); Est Glom Filt Rate - Afr Amer 101 mL/min (>60); Estimated Creatinine Clearance 109.16 ml/min; Glucose 141 mg/dL (74-106); Sodium Level 140 mmol/L (136-145)
--- NOTE | 2024-04-03 13:29 | PCM.OPRPT ---
Operative Report (Standard) Operative Information Date of Procedure: 04/03/24 Pre-Operative Diagnosis: Atherosclerosis with claudication right lower extremity with in-stent stenosis Post-Operative Diagnosis: Same Surgery/Procedure Performed: Aortogram, right lower extremity runoff Intravascular ultrasound right popliteal and superficial femoral arteries Angioplasty right SFA/popliteal in-stent stenosis public relations account supervisor: No Type of Anesthesia: Local and Sedation,Conscious Procedure Start Time: 11:30 Procedure Stop Time: 13:00 Select all DRAINS/GRAFTS/IMPLANTS that apply: None Estimated Blood Loss: 2 Specimen collected: No Description of surgery: HPI: Patient is a 73-year-old male who had previous right lower extremity angioplasty and stenting approximately 10 years prior for claudication. He states that several years later he had repeat intervention and since that time he has been doing well though over the last 1 to 2 years he has noticed increasing claudication at approximately 500 yards. He had an arterial duplex which revealed greater than 70% stenosis within the prior SFA popliteal stent. He presents now for angiogram with possible intervention for stent patency preservation. Description of procedure: Upon obtaining form consent and verification correct patient procedure site the patient was taken the Rehab Physician where he was positioned prepped and draped in usual sterile fashion. Timeouts performed and Sedation was ministered Versed and fentanyl. Skin overlying the left common femoral artery was anesthetized 1% lidocaine the vessel accessed under ultrasound guidance with a micropuncture needle wire. This then exchanged for micropuncture sheath through which hand-injection iliofemoral angiogram was performed revealing satisfactory positioning with no extravasation or dissection. Through the micropuncture sheath a Bentson wire was advanced and the micropuncture sheath exchanged for a short 6 [place] sheath. Through the 6 [place] sheath and Omni Flush catheter was advanced into the abdominal aorta and a digital subtraction aortogram pelvic angiograms performed. This revealed normal caliber abdominal aorta with no significant atherosclerosis or stenosis. The left common, internal, external iliac arteries are widely patent with no significant atherosclerosis or stenosis. The right common, internal, external iliac arteries were widely patent with no significant sclerosis or stenosis. Using the Bentson wire and the Omni Flush catheter to navigate into the contralateral iliac system advancing her catheter into the distal external iliac artery. From this position sequential subtraction angiography of the right lower extremity was performed. This revealed widely patent common femoral and profundofemoral arteries with no significant atherosclerosis or stenosis. The proximal superficial femoral artery was widely patent no atherosclerosis or stenosis with a stent noted in the distal vessel just above Nomi's canal and extending into the P1 popliteal segment. This revealed stenosis beginning approximately 1 cm proximal to the stent and throughout the proximal two thirds of the stent. The distal stent and popliteal beyond this had no significant atherosclerosis or stenosis. There was what appeared to be an aneurysmal segment of the distal P1 segment. The distal popliteal and its trifurcation were widely patent with no atherosclerosis or stenosis. There is three-vessel runoff via the tibials with no significant atherosclerosis or stenosis. The lesion appeared to be amenable to endovascular treatment so a glide advantage wire was advanced and the Omni Flush catheter exchanged for a quick cross catheter. We then navigated into the superficial femoral artery venting the wire and catheter into the distal SFA. The catheter then withdrawn and the short 6 [place] sheath exchanged for a 6 [place] 55 Rabie sheath. The patient was in heparinized allowed to circulate for 3 minutes. Next the quick cross catheter and glide advantage wire were used to navigate the stent and stenoses advancing while appearing to maintain position within the lumen of the stent. Once the catheter was advanced beyond the lesions the wires withdrawn a hand-injection subtraction angiography performed revealing satisfactory position within true lumen with no extravasation or dissection. An 014 wire was then advanced to the catheter and the catheter was withdrawn. Intravascular sound probe was then advanced and recorded pullback performed of the popliteal and the superficial femoral artery. This confirmed greater than 70% stenosis in multiple tandem segments of the stent as well as just cephalad to the leading edge of the stent. Is also confirmed that we are within true lumen within the vessel and within the stent. The aneurysmal segment of the popliteal artery was measured to be 11 mm. A Vartopia angio sculpt 6 x 100 balloon was then advanced over the wire and positioned at the distal edge of the stenosis. This was then inflated to just below burst pressure for 3 minutes then deflated and pulled back to the more proximal lesion and again inflated to below burst pressure for 3 minutes and then deflated withdrawn. Repeat angiography confirmed satisfactory result with no extravasation or dissection and no residual stenosis. There is brisk contrast transit across the entirety of the visualized vessel. A 7 mm x 80 Lal paclitaxel coated angioplasty balloon was then advanced in position distally and inflated to nominal for 2 minutes and then deflated withdrawn. A second paclitaxel coated balloon 7 mm x 60 Optisorttronic was advanced over wire and inflated to nominal with satisfactory overlap into the initial balloon segment and coverage of the proximal stenosis area. After this was inflated for 3 minutes was deflated withdrawn and completion angiography revealed satisfactory result with no extravasation or dissection and no residual stenosis. Imaging of the popliteal trifurcation revealed preserved trifurcation with no evidence of embolization. The 014 wire was exchanged for a Bentson wire and the long 6 [place] sheath exchanged for a short 6 [place] sheath. A Mynx closure device was then deployed followed by 2 minutes of manual pressure with satisfactory stasis noted. The patient was then taken to recovery with plan to discharge home after bedrest. Surgical Findings: As above Complications Complications: No
== END 2024-04-03 15:50 | disposition home or self-care (01) ==
PROVIDERS: PCP Family Medicine; Referring Provider Surgery Trauma Surgery; Visit Provider Surgery Trauma Surgery
DX: T82.856A Stenosis of peripheral vascular stent, initial encounter (principal); E11.51 Type 2 diabetes mellitus with diabetic peripheral angiopathy without gangrene; I72.4 Aneurysm of artery of lower extremity; I73.9 Peripheral vascular disease, unspecified; Z79.899 Other long term (current) drug therapy; K21.9 Gastro-esophageal reflux disease without esophagitis; I10 Essential (primary) hypertension; I25.10 Atherosclerotic heart disease of native coronary artery without angina pectoris; E78.5 Hyperlipidemia, unspecified; Z87.891 Personal history of nicotine dependence; Y71.2 Prosthetic and other implants, materials and accessory cardiovascular devices associated with adverse incidents
CPT/HCPCS: 36200; 36245; 36415; 37224; 37252; 75625; 75710; 76937; 80048; 85027; 99152; 99153; C1725; C1753; C1760; C1769; C1887; C1894; C2623; Q9967

== ENCOUNTER → 2024-05-15 | Outpatient (CLI) | payer MEDICARE, SELFPAY ==
--- NOTE | 2024-05-15 09:52 | ECHOD_ITS ---
Reason For Study: OTHER Procedure This was a 2D Doppler, Color Flow transthoracic echocardiogram. Exam performed in department. Left Ventricle Normal LV size. Mild concentric left ventricular hypertrophy. Left ventricular systolic function is normal. The left ventricular ejection fraction is 65 %. Stage 1 diastolic dysfunction. No regional wall motion abnormalities noted. Right Ventricle Normal RV size. Normal systolic function. Atria Normal left atrium. Normal right atrium. Mitral Valve Normal mitral valve. Tricuspid Valve Normal tricuspid valve. Aortic Valve Trisinus/trileaflet aortic valve. Pulmonic Valve Normal pulmonic valve. Great Vessels Normal aortic root. The pulmonary artery is normal size. Inferior vena cava collapse with respiration. Pericardium/Pleural No pericardial effusion. MMode/2D Measurements & Calculations LVIDd: 5.5 cm IVSd: 1.3 cm LAV(MOD-bp): 72.2 ml LVIDs: 4.1 cm LVPWd: 1.2 cm LAV(MOD-bp) Indexed: 28.0 ml/m2 RVDd: 3.9 cm FS: 26.5 % LAV(MOD-sp2): 94.6 ml LAV(MOD-sp4): 38.8 ml _ SV(MOD-sp4): 75.5 ml SV(sp4-el): 78.6 ml LVAd ap4: 39.4 cm2 LVLd ap4: 9.5 cm SI(MOD-sp4): 29.3 ml/m2 EDV(MOD-sp4): 136.5 ml EDV(sp4-el): 138.6 ml LVAs ap4: 24.0 cm2 LVLs ap4: 8.2 cm ESV(MOD-sp4): 60.9 ml ESV(sp4-el): 60.0 ml EF(MOD-sp4): 55.4 % EF(sp4-el): 56.7 % _ LA A4 area: 14.1 cm2 LA dimension(2D): 3.9 cm RA A4 area: 16.1 cm2 Time Measurements MV dec time: 0.31 sec Doppler Measurements & Calculations MV E max charles: 78.6 cm/sec Lat Peak E' Charles: 11.4 cm/sec Med Peak E' Charles: 9.1 cm/sec MV A max charles: 85.5 cm/sec E/E' lat: 6.9 E/E' med: 8.7 MV E/A: 0.92 _ MV V2 max: 91.2 cm/sec MV dec slope: 255.2 cm/sec2 Ao V2 max: 155.8 cm/sec MV max P.3 mmHg Ao max P.7 mmHg MV V2 mean: 53.4 cm/sec Ao V2 mean: 102.3 cm/sec MV mean P.3 mmHg Ao mean P.9 mmHg MV V2 VTI: 36.6 cm Ao V2 VTI: 35.8 cm AV (velocity ratio): 0.78 _ LV V1 max: 126.2 cm/sec PA V2 max: 99.7 cm/sec LV V1 max P.4 mmHg PA V2 mean: 67.2 cm/sec LV V1 mean P.2 mmHg LV V1 mean: 78.8 cm/sec LV V1 VTI: 27.9 cm ECHO/Echo Complete Interpretation Summary Normal LV size. Left ventricular systolic function is normal. The left ventricular ejection fraction is 65 %. Mild concentric left ventricular hypertrophy. Stage 1 diastolic dysfunction. Ordering Physician: Kevyn Sal Referring Physician: Arden Mejia Performed By: Radha Romano RCS
--- NOTE | 2024-05-15 09:52 | CDU_ITS ---
Reason For Study: Right carotid bruit Rt. Velocities/BP Lt. Velocities/BP Prox CCA 96/11.3 cm/sec. Prox CCA 98.6/18.8 cm/sec. Mid CCA 89.4/15.7 cm/sec. Mid CCA 108.4/18.8 cm/sec. Dist CCA 80.6/11.3 cm/sec. Dist CCA 101.1/16.3 cm/sec. Prox ICA 161.3/33.4 cm/sec. Prox ICA 108.3/17 cm/sec. Mid ICA 126.6/22.5 cm/sec. Mid ICA 90/18.8 cm/sec. Dist ICA 67.9/13.9 cm/sec. Dist ICA 86.4/17 cm/sec. Rt. ICA/CCA = 1.80. Lt. ICA/CCA = 1.00. Prox ECA 137.5/17 cm/sec. Prox ECA 101.1/12.6 cm/sec. Rt. Vert. 47/9 cm/sec. Lt. Vert. 62.6/13.3 cm/sec. Right Extracranial There is homogeneous, smooth atherosclerotic plaque noted in the right common carotid artery. There is heterogeneous, irregular atherosclerotic plaque noted in the right internal carotid artery. There is intimal thickening but no significant atherosclerotic plaque noted in the right external carotid artery. Antegrade flow is noted in the right vertebral artery. Left Extracranial There is homogeneous, smooth atherosclerotic plaque noted in the left common carotid artery. There is heterogeneous, irregular atherosclerotic plaque noted in the left internal carotid artery. There is intimal thickening but no significant atherosclerotic plaque noted in the left external carotid artery. Antegrade flow is noted in the left vertebral artery. Procedure Carotid Duplex [id number]. This is a Carotid Duplex examination using B-mode, color flow and specral Doppler. Exam performed in department. VL/Carotid Duplex Ultrasound Interpretation Summary Moderate (50-69%) stenosis right extracranial internal carotid. Mild (<50%) stenosis left extracranial internal carotid. Patent and antegrade vertebrals bilaterally. Ordering Physician: Arden Mejia Referring Physician: Kevyn Sal Performed By: Shelbie Miller RVT
== END | disposition home or self-care (01) ==
LOC: CVS 09:50
PROVIDERS: PCP Family Medicine; Referring Provider Psychiatry & Neurology Neurology; Visit Provider Psychiatry & Neurology Neurology
DX: R09.89 Other specified symptoms and signs involving the circulatory and respiratory systems (principal); I25.10 Atherosclerotic heart disease of native coronary artery without angina pectoris
CPT/HCPCS: 93306; 93880

== ENCOUNTER → 2024-10-30 | Outpatient (CLI) | payer MEDICARE, SELFPAY ==
[2024-10-30 12:35] LABS: Hematocrit 42.6 % (40-54); Hemoglobin 14.4 g/dL (13.0-16.5); Immature Granulocytes Count 0.030 X10^3/uL (0.0-0.0); Mean Corp Hgb Conc 33.8 g/dL (32-36); Mean Corpuscular Volume 89.5 fL (80-94); Mean Platelet Vol. 9.8 fl (6.2-12.0); NRBC Flagged by Analyzer 0 % (0-5); Platelet Count 211 K/mm3 (150-450); RBC Distribution Width CV 12.9 % (11.6-14.6); RBC Distribution Width SD 42.2 fl (35.1-43.9); Red Blood Count 4.76 M/mm3 (4.6-6.2); White Blood Count 7.6 K/mm3 (4.4-11.0)
[2024-10-30 13:12] LABS: AST(SGOT) 34 U/L (<=37); Alanine Aminotransfer ALT/SGPT 25 U/L (<=46); Albumin, Serum 4.1 g/dL (3.4-4.8); Alkaline Phosphatase 71 U/L (40-129); Anion Gap 12 (5-15); BUN 14 mg/dL (4-19); BUN/Creat Ratio 15.3 RATIO (10-20); Calcium,Total 9.3 mg/dL (7.6-11.0); Carbon Dioxide 22.3 mmol/L (21.0-32.0); Chloride 104 mmol/L (98-108); Cholesterol 122 mg/dL (<=200); Globulin 3.5 g/dL (2.2-4.2); Glucose 152 mg/dL (70-99); Low Density Lipoprotein Calc. 57 mg/dL; Potassium 4.5 mmol/L (3.3-5.1); Triglycerides 127 mg/dL; Very Low Density Lipoprotein 25 mg/dL (5-40); cholesterol:hdl ratio screen 3.04
== END | disposition home or self-care (01) ==
LOC: MFPLAB 10:34
PROVIDERS: PCP Family Medicine; Referring Provider Family Medicine; Visit Provider Family Medicine
DX: R73.03 Prediabetes (principal); I70.90 Unspecified atherosclerosis; E03.9 Hypothyroidism, unspecified
CPT/HCPCS: 36415; 80053; 80061; 83036; 84443; 85025

== ENCOUNTER → 2025-01-30 | Outpatient (CLI) | payer MEDICARE, SELFPAY ==
[2025-01-30 12:17] LABS: Hematocrit 40.9 % (40-54); Hemoglobin 13.9 g/dL (13.0-16.5); Immature Granulocytes Count 0.020 X10^3/uL (0.0-0.0); Mean Corp Hgb Conc 34.0 g/dL (32-36); Mean Corpuscular Volume 88.7 fL (80-94); Mean Platelet Vol. 9.8 fl (6.2-12.0); NRBC Flagged by Analyzer 0 % (0-5); Platelet Count 205 K/mm3 (150-450); RBC Distribution Width CV 12.6 % (11.6-14.6); RBC Distribution Width SD 40.8 fl (35.1-43.9); Red Blood Count 4.61 M/mm3 (4.6-6.2); White Blood Count 7.1 K/mm3 (4.4-11.0)
[2025-01-30 12:41] LABS: Creatinine, Urine (random) 170.00 mg/dL (39.00-259.00); Microalbumin,Random Urine 58.0 mg/L (<20 mg/L)
[2025-01-30 15:25] LABS: AST(SGOT) 32 U/L (<=37); Alanine Aminotransfer ALT/SGPT 22 U/L (<=46); Albumin, Serum 4.0 g/dL (3.4-4.8); Alkaline Phosphatase 69 U/L (40-129); Anion Gap 10 (5-15); BUN 12 mg/dL (4-19); BUN/Creat Ratio 13.4 RATIO (10-20); Calcium,Total 9.3 mg/dL (7.6-11.0); Carbon Dioxide 25.0 mmol/L (21.0-32.0); Chloride 105 mmol/L (98-108); Cholesterol 115 mg/dL (<=200); Globulin 3.4 g/dL (2.2-4.2); Glucose 141 mg/dL (70-99); Low Density Lipoprotein Calc. 54 mg/dL; Potassium 4.5 mmol/L (3.3-5.1); Triglycerides 134 mg/dL; Very Low Density Lipoprotein 27 mg/dL (5-40); cholesterol:hdl ratio screen 3.09
== END | disposition home or self-care (01) ==
LOC: MFPLAB 10:57
PROVIDERS: PCP Family Medicine; Visit Provider Family Medicine
DX: R73.03 Prediabetes (principal)
CPT/HCPCS: 80053; 80061; 82043; 82570; 83036; 85025

== ENCOUNTER → 2025-03-03 | Outpatient (CLI) | payer MEDICARE, SELFPAY ==
[2025-03-03 12:21] LABS: Hematocrit 42.0 % (40-54); Hemoglobin 14.2 g/dL (13.0-16.5); Immature Granulocytes Count 0.020 X10^3/uL (0.0-0.0); Mean Corp Hgb Conc 33.8 g/dL (32-36); Mean Corpuscular Volume 88.8 fL (80-94); Mean Platelet Vol. 10.0 fl (6.2-12.0); NRBC Flagged by Analyzer 0 % (0-5); Platelet Count 239 K/mm3 (150-450); RBC Distribution Width CV 12.5 % (11.6-14.6); RBC Distribution Width SD 40.8 fl (35.1-43.9); Red Blood Count 4.73 M/mm3 (4.6-6.2); White Blood Count 7.3 K/mm3 (4.4-11.0)
[2025-03-03 13:00] LABS: Creatinine, Urine (random) 245.00 mg/dL (39.00-259.00); Microalbumin,Random Urine 158.0 mg/L (<20 mg/L)
[2025-03-03 13:13] LABS: AST(SGOT) 28 U/L (<=37); Alanine Aminotransfer ALT/SGPT 20 U/L (<=46); Albumin, Serum 4.1 g/dL (3.4-4.8); Alkaline Phosphatase 73 U/L (40-129); Anion Gap 12 (5-15); BUN 17 mg/dL (4-19); BUN/Creat Ratio 21.2 RATIO (10-20); Calcium,Total 9.5 mg/dL (7.6-11.0); Carbon Dioxide 23.6 mmol/L (21.0-32.0); Chloride 105 mmol/L (98-108); Cholesterol 119 mg/dL (<=200); Globulin 3.5 g/dL (2.2-4.2); Glucose 146 mg/dL (70-99); Low Density Lipoprotein Calc. 58 mg/dL; Potassium 4.2 mmol/L (3.3-5.1); Triglycerides 124 mg/dL; Very Low Density Lipoprotein 25 mg/dL (5-40); Vitamin D,25 Hydroxy 68.6 ng/mL (30-100); cholesterol:hdl ratio screen 3.04
== END | disposition home or self-care (01) ==
LOC: MFPLAB 10:15
PROVIDERS: PCP Family Medicine; Visit Provider Family Medicine
DX: R73.03 Prediabetes (principal); M48.10 Ankylosing hyperostosis [Forestier], site unspecified; E55.9 Vitamin D deficiency, unspecified; M19.049 Primary osteoarthritis, unspecified hand
CPT/HCPCS: 36415; 80053; 80061; 82043; 82306; 82570; 83036; 85025; 86617

== ENCOUNTER → 2025-03-09 | Outpatient (CLI) | payer MEDICARE, SELFPAY ==
--- NOTE | 2025-03-09 10:40 | CDU_ITS ---
Reason For Study Reason For Study: Rt ICA Stenosis Rt. Velocities/BP Lt. Velocities/BP Prox CCA 92/12 cm/sec. Prox CCA 98/18 cm/sec. Mid CCA 95/18 cm/sec. Mid CCA 85/17 cm/sec. Dist CCA 85/18 cm/sec. Dist CCA 129/33 cm/sec. Prox ICA 170/35 cm/sec. Prox ICA 116/18 cm/sec. Mid ICA 147/26 cm/sec. Mid ICA 111/25 cm/sec. Dist ICA 92/23 cm/sec. Dist ICA 92/31 cm/sec. Rt. ICA/CCA = 1.79. Lt. ICA/CCA = 1.5. Prox ECA 156/23 cm/sec. Prox ECA 116/21 cm/sec. Rt. Vert. 44/8 cm/sec. Lt. Vert. 47/11 cm/sec. Right Extracranial There is heterogeneous, irregular atherosclerotic plaque noted in the right common carotid artery. There is heterogeneous, irregular atherosclerotic plaque noted in the right internal carotid artery. There is intimal thickening but no significant atherosclerotic plaque noted in the right external carotid artery. Antegrade flow is noted in the right vertebral artery. Left Extracranial There is heterogeneous, irregular atherosclerotic plaque noted in the left common carotid artery. There is heterogeneous, irregular atherosclerotic plaque noted in the left internal carotid artery. There is intimal thickening but no significant atherosclerotic plaque noted in the left external carotid artery. Antegrade flow is noted in the left vertebral artery. Procedure Carotid Duplex [id number]. This is a Carotid Duplex examination using B-mode, color flow and specral Doppler. Exam performed in department. VL/Carotid Duplex Ultrasound Interpretation Summary Moderate (50-69%) stenosis right extracranial internal carotid. Mild (<50%) robb nosis left extracranial internal carotid. Flow within the vertebral arteries is antegrade bilaterally. Ordering Physician: Arden Mejia Referring Physician: Kevyn Sal Performed By: Soni Lawson, RDCS, RVT
== END | disposition home or self-care (01) ==
LOC: CVS 10:39
PROVIDERS: PCP Family Medicine; Referring Provider Psychiatry & Neurology Neurology; Visit Provider Psychiatry & Neurology Neurology
DX: I65.21 Occlusion and stenosis of right carotid artery (principal)
CPT/HCPCS: 93880